=== PATIENT | female | born 1940 | race Caucasian/White ===

== ENCOUNTER 2017-04-18 10:46 | Observation (INO) | payer MEDICARE, OTHER ==
[2017-04-18] MEDS ORDERED: SODIUM CHLORIDE 0.9% 500 ML IV ONE (10:56)
[2017-04-18] MEDS ORDERED: DILTIAZEM 25MG/5ML VIAL IV ONE (10:57)
[2017-04-18] MEDS ORDERED: DILTIAZEM HCL 125 MG in 0.9 % SODIUM CHLORIDE 100ML 100 ML IV SCH (11:00)
--- NOTE | 2017-04-18 11:03 | Emergency Department Record ---
History of Present Illness - General Chief Complaint: Shortness of breath Stated Complaint: SHORT OF BREATH Time Seen by Provider: 04/18/17 10:49 Source: Patient Mode of Arrival: Wheelchair Limitations: No limitations - History of Present Illness Initial Comments: 77 yo female presents from the [facility] with fatigue for a few weeks, increasing reflux, and a resting HR of 160. The patient had not noticed her elevated heart rate. She was being seen today in the [facility] mainly for increase reflux. In July she had hiatel hernia surgery. Over the last several weeks she is noting and increase in her baseline reflux. She is taking antacids and her PPI without improvement. She has felt fatigue and short of breath. No chest pain. No edema of the legs. She denies palpitations. Her PCP is Bibiana and her Manager Gift is Tom. No CAD. MD Complaint: Shortness of breath -: Days(s) Severity: Moderate Consistency: Constant Improves With: Nothing Worsens With: Nothing Known History Of: Other Context: Other Associated Symptoms: Other (Reflux) Treatments Prior to Arrival: None - Related Data Home Oxygen Therapy: No Allergies Allergy/AdvReac Type Severity Reaction Status Date / Time prednisone Allergy Severe PALPITATION Verified 04/18/17 10:57 S acetaminophen [From Vicodin] Allergy NAUSEA Verified 04/18/17 10:57 cephalexin monohydrate Allergy NAUSEA Verified 04/18/17 10:57 [From Keflex] hydrocodone bitartrate Allergy NAUSEA Verified 04/18/17 10:57 [From Vicodin] metoprolol succinate AdvReac Mild LETHARGIC Verified 04/18/17 10:57 [From Toprol XL] nebivolol HCl [From Bystolic] AdvReac Mild INCREASED Verified 04/18/17 10:57 URINATION Travel Screening - Travel/Exposure Within Last 30 Days Have you traveled within the last 30 days?: No Review of Systems Constitutional: Reports: Weakness. Denies: Chills, Fever, Malaise Eyes: Denies: Eye discharge ENT: Denies: Congestion, Ear pain, Epistaxis, Throat pain Respiratory: Reports: Dyspnea. Denies: Cough, Hemoptysis Cardiovascular: Denies: Arrhythmia, Chest pain, Edema, Palpitations, Syncope Endocrine: Reports: Fatigue. Denies: Polydipsia, Polyuria Gastrointestinal: Denies: Abdominal pain, Constipation, Diarrhea, Hematemesis, Hematochezia, Melena, Nausea, Vomiting Genitourinary: Denies: Discharge, Dysuria, Urgency Musculoskeletal: Denies: Arthralgia, Back pain, Myalgia, Neck pain Skin: Denies: Bruising, Change in color, Rash Neurological: Denies: Headache, Numbness, Vertigo, Weakness Psychiatric: Denies: Anxiety Hematological/Lymphatic: Denies: Blood Clots, Easy bleeding, Easy bruising, Swollen glands Past Medical History - SOCIAL HISTORY Smoking Status: Never smoker Alcohol Use: None Drug Use: None - RESPIRATORY Hx Respiratory Disorders: No - CARDIOVASCULAR Hx Cardio Disorders: Yes Hx Irregular Heartbeat: Yes - NEURO Hx Neuro Disorders: No - GI Hx GI Disorders: Yes Hx Abdominal Pain: Yes (epigastric/throat) Hx Reflux: Yes Hx Hiatal Hernia: Yes Hx Ulcer: Yes Hx Wt Loss/Wt Gain: Yes - Hx Genitourinary Disorders: No - ENDOCRINE Hx Endocrine Disorders: No - MUSCULOSKELETAL Hx Musculoskeletal Disorders: Yes Hx Arthritis: Yes - PSYCH Hx Psych Problems: Yes Hx Anxiety: Yes - HEMATOLOGY/ONCOLOGY Hx Hematology/Oncology Disorders: No Family Medical History Any Significant Family History?: Yes Hx Cancer: Father, Brother/Sister *Cancer Comment: stomach & pancreatic, colon Physical Exam - General General Appearance: Alert, Oriented x3, Cooperative, No acute distress Limitations: No limitations - Head Head exam: Atraumatic, Normocephalic, Normal inspection - Eye Eye exam: Normal appearance. negative: Conjunctival injection, Periorbital swelling, Scleral icterus - ENT ENT exam: Normal exam, Mucous membranes moist Ear exam: Normal external inspection Nasal Exam: Normal inspection Mouth exam: Normal external inspection - Neck Neck exam: Normal inspection, Full ROM. negative: Tenderness - Respiratory Respiratory exam: Normal lung sounds bilaterally. negative: Respiratory distress, Rhonchi, Stridor, Wheezes - Cardiovascular Cardiovascular Exam: Normal rhythm, Normal heart sounds, Tachycardia. negative : Regular rate Peripheral Pulses: 2+: Radial (R), Radial (L) - GI/Abdominal GI/Abdominal exam: Soft. negative: Distended, Guarding, Hernia, Rebound, Rigid , Tenderness - Rectal Rectal exam: Deferred - exam: Deferred - Extremities Extremities exam: Normal inspection, Full ROM, Normal capillary refill. negative: Pedal edema, Tenderness - Back Back exam: Reports: Normal inspection, Full ROM. Denies: Muscle spasm, Rash noted, Tenderness - Neurological Neurological exam: Alert, Normal gait, Oriented X3 - Psychiatric Psychiatric exam: Normal affect, Normal mood - Skin Skin exam: Dry, Intact, Normal color, Warm Course Vital Signs 04/18/17 10:48 Temperature 98.5 F Pulse Rate 166 H Respiratory 20 Rate Blood Pressure 112/86 Pulse Ox 97 - Reevaluation(s) Reevaluation #1: EKG at 10:28 Tachycardia at 160, intervals normal, axis normal, NS ST changes. 04/18/17 11:02 No acute changes on the CBC After the 10mg IVP of Cardizem the HR improved to 90. Repeat EKG ordered 04/18/17 11:23 04/18/17 11:36 EKG#2 11:25 NSR with APC, rate is 84, intervals normal, axis normal, ST No acute changes 04/18/17 11:59 The CMP was reviewed The sodium is low at 125 The Troponin is normal The BNP is normal Current HR is 78 04/18/17 12:[address] Doan regarding admission for monitor for tachycardia, serial enzymes, ECHO, Cardiology and GI consults 04/18/17 12:22 CXR was read as no acute process Medical Decision Making - Lab Data Result diagrams: 04/18/17 11:10 04/18/17 11:10 Disposition Disposition: Admit Clinical Impression: Tachycardia, SVT (supraventricular tachycardia) Disposition: Still a Patient at [facility] Decision to Admit: Admit from ER Decision to Admit Date: 04/18/17 Decision to Admit Time: 12:18 Condition: (1) Good Forms: Patient Portal Access Time of Disposition: 12:18 Quality - Quality Measures Quality Measures: N/A - Blood Pressure Screening Does Patient Have Any of the Following: No Blood Pressure Classification: Pre-Hypertensive BP Reading Systolic Measurement: 112 Diastolic Measurement: 86 Screening for High Blood Pressure: < Pre-Hypertensive BP, F/U Documented > [ [id number]] Pre-Hypertensive Follow-up Interventions: Referral to alternative/primary care provider.
[2017-04-18 11:12] LABS: BASO % 1.2 % (0-6); EOS % 0.6 % (0-6); GRAN % 58.7 % (47-80); HEMOGLOBIN 14.6 gm/dl (11.6-16.0); LYMPH % 27.4 % (16-45); MEAN CELL VOLUME 81.9 fl (81-97); MEAN CORPUSCULAR HEMOGLOBIN 28.5 pg (27-33); MEAN CORPUSCULAR HGB CONC 34.8 g/dl (32-36); MEAN PLATELET VOLUME 9.3 fl (7.4-10.4); MONO % 12.1 % (0-9); PLATELET COUNT 345 K/uL (130-400); RED BLOOD COUNT 5.13 M/uL (3.80-5.40); RED CELL DISTRIBUTION WIDTH 14.3 % (11.5-14.5); WHITE BLOOD COUNT W/O DIFF 5.1 K/uL (4.2-12.2)
[2017-04-18 11:30] LABS: INR 0.94; PARTIAL THROMBOPLASTIN TIME 25.5 SECONDS (24.5-39.1); PROTHROMBIN TIME (PATIENT) 10.2 SECONDS (9.5-12.1)
[2017-04-18 11:43] LABS: ALB/GLOB RATIO 1.5 (1.1-1.8); ALBUMIN 4.5 g/dL (4.0-5.0); ALKALINE PHOSPHATASE 83 U/L (35-104); ALT/SGPT 14 U/L (<33); AST/SGOT 27 U/L (10.0-35.0); BLOOD UREA NITROGEN 13 mg/dL (8-23); CKMB 4.7 ng/mL (<3.77); CREATINE PHOSPHOKINASE 72 U/L (26-192); CREATININE 0.7 mg/dL (0.5-0.9); EST GLOMERULAR FILTRATION RATE > 60 mL/min; GLUCOSE,RANDOM 120 mg/dL (74-109); TOTAL PROTEIN 7.6 g/dL (6.6-8.7)
[2017-04-18 11:47] LABS: TROPONIN I < 0.30 ng/mL (0.00-0.300)
[2017-04-18] MEDS: 0.9 % SODIUM CHLORIDE 1000ML 1,000 ML IV PRN (14:35)
[2017-04-18] MEDS: PANTOPRAZOLE SODIUM 40 MG TABLET PO SCH (17:22)
[2017-04-18] MEDS ORDERED: SUCRALFATE 1 G/10 ML UD PO ONE (17:57)
[2017-04-18] MEDS ORDERED: DILTIAZEM HCL 30 MG TABLET PO SCH (18:15)
[2017-04-18] MEDS: ENOXAPARIN 60 MG/0.6 ML SYR SQ SCH (18:43)
[2017-04-18] MEDS: SUCRALFATE 1 G/10 ML UD PO SCH (22:20)
[2017-04-19] MEDS: 0.9 % SODIUM CHLORIDE 1000ML 1,000 ML IV PRN ×2 (03:09→03:15)
[2017-04-19] MEDS: DILTIAZEM HCL 30 MG TABLET PO SCH ×3 (03:13→21:23)
[2017-04-19] MEDS: ENOXAPARIN 60 MG/0.6 ML SYR SQ SCH ×2 (03:14→10:55)
[2017-04-19] MEDS: AL HYDROX/MAG HYDROX 30ML UD PO PRN ×4 (03:14→23:04)
[2017-04-19] MEDS: PANTOPRAZOLE SODIUM 40 MG TABLET PO SCH (06:58)
--- NOTE | 2017-04-19 07:37 | RADIOLOGY REPORT ---
EXAM: AP CHEST HISTORY: TACHYCARDIA, SHORTNESS OF BREATH. TECHNIQUE: AP view of the chest was obtained. Comparison: Chest x-ray 08/14/13. FINDINGS: The lungs are clear. The cardiac silhouette is not enlarged. The aorta is tortuous. The diaphragm is unremarkable. Osteopenia with severe S- shaped scoliosis of the thoracolumbar spine. Healed left rib fractures. Prominent hiatal hernia better seen prior study. IMPRESSION: 1. NO ACUTE INTRATHORACIC PROCESS. 2. PROMINENT HIATAL HERNIA BETTER SEEN ON PRIOR STUDY. 3. HEALED LEFT RIB FRACTURES. JOB NUMBER: [id number] MTDD
[2017-04-19] MEDS ORDERED: ENOXAPARIN 40 MG/0.4 ML SYR SQ SCH (10:00)
[2017-04-19] MEDS: SUCRALFATE 1 G/10 ML UD PO SCH ×4 (10:15→21:23)
[2017-04-19] MEDS: ASPIRIN 325 MG TAB ENTERIC-COATED PO SCH (10:18)
--- NOTE | 2017-04-19 10:24 | History and Physical Report ---
DATE OF ADMISSION: 04/18/2017. CHIEF COMPLAINT: Tachycardia, indigestion, burning in the epigastric area. HISTORY OF PRESENT ILLNESS: This 77-year-old female had felt she had burning and indigestion, had been eating a lot of Tums and Rolaids and went to the [facility], to the family practice to see Dr. Mccarty. She was evaluated in the family practice unit at the [facility] and moved over to the ER because an EKG was done at [facility], which showed tachycardia of about 150-160 and upon arrival to the ER, an IV was started. Cardizem 10 mg IV was given, and she converted to normal sinus rhythm with PACs and a couple of PVCs. She was feeling much better. She still had some indigestion. Will treat that with Carafate to see if that helps. She states that she had hiatal hernia surgery at [facility] July 2016, has had trouble since that time. I guess it was a difficult surgery because the hiatal hernia had been going on for a long time. She was admitted to the hospital for serial cardiac enzymes, serial EKGs, cardiology consult with Dr. Santos, and possibly down the road after her heart has been cleared, a GI consult with Dr. Sotomayor. She has seen Dr. Santos in the past on a yearly basis. I believe she was checked out also prior to hiatal hernia seurgery. MEDICAL HISTORY: She has had some irregular heartbeats in the past, palpitations. She has had a hiatal hernia, a peptic ulcer. She has had some problems with weight loss in the last 6 months. Arthritis, low back pain, anxiety. SURGICAL HISTORY: She had a hiatal hernia repair July 2016 at [facility]. She also had a bowel resection many years ago with multiple reconstructions afterwards. She had an EGD and colonoscopy, Dr. Andrews, as scheduled for maintenance. CURRENT MEDICATIONS: 1. Omeprazole 20 mg b.i.d. 2. Multiple vitamins 2 daily. 3. Cardizem LA 180 mg daily. 4. Vitamin D3 10,000 units weekly. 5. Calcium. 6. Magnesium oxide 1 daily. ALLERGIES: PREDNISONE, severe palpitations. ACETAMINOPHEN from VICODIN caused nausea. Probably the narcotic did that. KEFLEX, causing nausea. VICODIN causes nausea. METOPROLOL SUCCINATE caused lethargy. BYSTOLIC caused increased urination. SOCIAL HISTORY: Never smoked. No drugs or alcohol. FAMILY HISTORY: Mother and father, brothers, and sisters had stomach and pancreatic cancer. SYSTEMS REVIEW: HEENT: No upper respiratory infectious symptoms, cough, cold, or congestion. Cardiovascular: See chief complaint. Respiratory: No cough, cold, or congestion. Gastrointestinal: She has had hiatal hernia problems with nausea, indigestion, and burning in the epigastric area, more so in the last 2 days, but also on and off since July of 2015. Genitourinary: No dysuria, hematuria, frequency, or burning on urination. Musculoskeletal: No joint or bony abnormalities. Neurologic: No CVA, paralysis, or paresthesias. Endocrine: No diabetes or thyroid disease. Integument: No rash, ulcer changes, change in moles, yellow skin. Gynecologic: No breast or pelvic problems. PHYSICAL EXAMINATION: VITAL SIGNS: Height is 4 foot 9. Weight is 130 pounds. Blood pressure 127/85. Pulse 76. Respiratory rate 18. Pulse ox 100% on 2 L nasal cannula. HEENT: Pupils equal, round, and react to light and accommodation. Extraocular movements intact. Throat is clear. Nose clear. Tympanic membranes cohen. NECK: Supple. No jugular venous distention. No hepatojugular reflex. No carotid bruits. Thyroid smooth. LUNGS: Breath sounds equal bilaterally. HEART: Slightly irregular rate and rhythm because of PACs. ABDOMEN: Soft, nontender. No hepatosplenomegaly. No masses. No tenderness. Bowel sounds are active. No bruits. EXTREMITIES: No pitting edema. No cyanosis. No clubbing. Full range of motion. Peripheral pulses good. BREASTS, GYNECOLOGICAL, AND RECTAL: Exam deferred. NEUROLOGIC: Cranial nerves II-XII intact. No gross defect. Sensation normal. Strength normal. Deep tendon reflexes equal bilaterally. Babinski negative. Mental status: Alert and oriented x 3. IMPRESSION: 1. Tachycardia, possibly atrial fibrillation. Converted with IV Cardizem 10 mg in the ER. 2. History of hiatal hernia and surgery, July of 2016. Still having lots of indigestion, burning in the epigastric area. 3. Rule out acute coronary syndrome. Cardiac CK-MB was slightly elevated, and the troponin was normal. The EKG after the conversion showing no acute ST-T wave changes. Some PACs. A 3rd EKG was done about 6 p.m. PLAN: Serial cardiac enzymes, serial EKGs. Dr. Santos consult. Will start Lovenox 60 mg 1 mg/kg b.i.d. in case this was a paroxysmal episode of atrial fibrillation. MTDD
--- NOTE | 2017-04-19 13:00 | Medical Records Consult ---
DATE OF CONSULTATION: 04/19/2017 REASON FOR CONSULTATION: I was asked to see the patient for evaluation of recurrent SVT. HISTORY OF PRESENT ILLNESS: She is a 77-year-old white female who has known history of SVT in the past, reactive type, generally controlled with daily verapamil, currently 180 mg a day. She primarily came into the emergency room because she had been having increasing problems with esophageal reflux symptoms. She had extensive surgery earlier this year for hiatal hernia done at [facility] and [place]. She has not really recovered completely from the surgery. She continues to complain of generalized fatigue and significant reflux symptoms. Those have gotten worse to the point where she came into the emergency room yesterday and was found to be in SVT. Received adenosine and converted to sinus rhythm. The arrhythmia has not recurred. She complains of intermittent burning in her chest that comes and goes and does not really sound like angina. She has taken Tums, which generally has helped in the past but has not helped recently. She has been back to her surgeon several times and was told this is going to take a tincture of time for it to heal up. She initially put on some weight after the surgery but now has lost weight because it is difficult for her to eat. She denies any melena, hematochezia. She does have a minimally elevated CK-MB, which I think is probably a false positive. PAST MEDICAL HISTORY: Previous hypertension, arthritis. No real history of other heart disease. MEDICATIONS: Prior to admission: 1. Diltiazem 180 mg a day. 2. Prilosec apparently 40 mg b.i.d. 3. Tums p.r.n. ALLERGIES: Multiple intolerances to nebivolol, nadolol, metoprolol, hydrocodone, acetaminophen. FAMILY HISTORY: Positive for cancer. REVIEW OF SYSTEMS: A 10-point review of systems reviewed. Pertinent positives in HPI, otherwise negative. SOCIAL HISTORY: Never smoked. PHYSICAL EXAMINATION: VITAL SIGNS: Per nurses' notes and reviewed and confirmed personally. GENERAL: Nervous, thin white female sitting up in bed. Sometimes tearful. HEAD, EYES, EARS, NOSE, THROAT: Normocephalic and atraumatic. NECK: Supple. No bruits, JVD, thyromegaly. CHEST: Clear to auscultation and percussion. Surgical scars were all healed. ABDOMEN: Somewhat tender. There are no masses. GENITALIA/RECTAL: Deferred. NEUROLOGIC: Cranial nerves II-XII are intact. Sensation is normal. EXTREMITIES: Pulses are 2+/4. There is no edema. IMPRESSION: 1. Chest pain, most likely from reflux symptoms. 2. Reactive SVT, converted to sinus rhythm after adenosine. 3. Anxiety. 4. Hypertension. PLAN: Recommend increasing her diltiazem to 240 mg a day. She can undergo endoscopy today if needed. Eventually she will need a stress test of some sort. It probably can be done as an outpatient. Once again, I think the mild elevation in the CK-MB is a red tucker. I do not really think she had an ischemic episode. MARCIAD
[2017-04-19] MEDS ORDERED: 0.9 % SODIUM CHLORIDE 1000ML 1,000 ML IV ONE (15:34)
[2017-04-19] MEDS: PANTOPRAZOLE SODIUM IV 40 MG VIAL IVP SCH (15:40)
[2017-04-20] MEDS: AL HYDROX/MAG HYDROX 30ML UD PO PRN ×3 (02:06→08:54)
[2017-04-20] MEDS: PANTOPRAZOLE SODIUM IV 40 MG VIAL IVP SCH (03:33)
[2017-04-20] MEDS: ASPIRIN 325 MG TAB ENTERIC-COATED PO SCH (09:07)
[2017-04-20] MEDS: SUCRALFATE 1 G/10 ML UD PO SCH (09:07)
--- NOTE | 2017-04-20 09:20 | Discharge Note ---
VTE H&P Assessment - Risk for VTE Risk for VTE: Yes Risk Level: Low Risk Assessment Date: 04/17/17 Risk Assessment Time: 20:00 VTE Orders Placed or Will Be Placed: Yes Discharge Medications - Discharge Medications Prescriptions: Magnesium Hydroxide/Al Hydrox [Maalox] 30 ml PO Q2HR PRN #300 PRN Reason: Gi Upset Diltiazem HCl [Diltiazem 24Hr ER] 240 mg PO DAILY #30 cap.er.24h Pantoprazole Sodium [Protonix] 40 mg PO BID #60 tablet. Sucralfate [Carafate] 1 g PO QID #200 ml Home Medications: Ambulatory Orders Diltiazem HCl [Diltiazem 24Hr ER] 240 mg PO DAILY #30 cap.er.24h 04/20/17 [Last Taken Unknown] Magnesium Hydroxide/Al Hydrox [Maalox] 30 ml PO Q2HR PRN #300 04/20/17 [Last Taken Unknown] Pantoprazole Sodium [Protonix] 40 mg PO BID #60 tablet. 04/20/17 [Last Taken Unknown] Sucralfate [Carafate] 1 g PO QID #200 ml 04/20/17 [Last Taken Unknown] Discharge Note - Date Date of Discharge Note: 04/20/17 Disposition: Home, Self-Care Condition: (1) Good Additional Instructions: follow up with Dr. Doan on Saturday at [address] Doan on Saturday at noontime [phone] take carafate(sucralfate) one hour before meals and bedtime take Maalox 30 ml (two tablespoons) after meals and bedtime and between meal if necessary follow up with Dr. Booker in 1-2 weeks Take protonix 40 mg twice a day take Diltiazem(cardizem)ER 240 mg once a day Referrals: Frantz Doan D.O. [DOCTOR OF OSTEOPATH] - Forms: Patient Portal Access Activity at Discharge: Increase Activity as Tolerated Diet at Discharge: Other (full liquid diet)
[2017-04-20] MEDS ORDERED: ENOXAPARIN 40 MG/0.4 ML SYR SQ SCH (10:00)
[2017-04-20] MEDS ORDERED: DILTIAZEM HCL 120 MG ER CAPSULE PO SCH (10:00)
--- NOTE | 2017-04-20 10:34 | Medical Records Consult ---
DATE OF CONSULTATION: 04/19/2017 REQUESTING PHYSICIAN: DR. FRANTZ CARTY REASON FOR CONSULTATION: EPIGASTRIC PAIN. HISTORY OF PRESENTING ILLNESS: This is a 77-year-old female who presented to the hospital with what appears to have been SVT with rapid ventricular response and subsequently had cardioversion using medications and I am asked to see her because she is having increasing worsening of dysphagia after she has had hiatal hernia repaired by Dr. Hennessy in July of 2016. She indicated that she has been having increasing difficulty in swallowing her food and sometimes has some regurgitation and she is very fearful of aspiration. When she presented to the hospital, she had some shortness of breath with diaphoresis but no dizziness and she has a long-time history of gastroesophageal reflux disease but denies any chest pain, odynophagia, or any fever or chills. No diarrhea or any blood in the stool. REVIEW OF SYSTEMS: A 12-point systemic review was performed and is documented in her chart. PHYSICAL EXAMINATION: GENERAL/VITAL SIGNS: Reveals a pleasant, elderly female who is lying in bed with her son by the bedside with vital signs that show a blood pressure of 112/ 86 and a heart rate of 88. Respirations of 18. HEENT: She is not pale or jaundiced. Oral mucosa is moist with on ulceration. Nonicteric sclerae with no erythema. NECK: Neck is supple. No palpable lymph nodes or thyromegaly. LUNGS: Lungs are clear to auscultation bilaterally with no wheezes or rales. HEART: S1, S2. No gallop or murmur. ABDOMEN: Abdomen is soft, nontender. No palpable masses or organomegaly. Bowel sounds are present, normoactive. EXTREMITIES: No edema, cyanosis or clubbing. NEUROLOGIC: She is alert and oriented x3. No focal deficit grossly. LABORATORY DATA: She had a complete blood count done that was normal. Basic metabolic panel done that was also essentially normal. IMPRESSION: A 77-year-old female post hiatal hernia repair with intermittent dysphagia and some weight loss who presented to the hospital with SVT, currently stabilizing. RECOMMENDATIONS: My plan and recommendation include; 1. We will continue on proton pump inhibitors twice daily. 2. Add Carafate suspension. 3. I will discuss with Dr. Hennessy regarding management of this complicated patient especially with regards to possible EGD with dilatation and/or repeat surgery. I will be very happy to see her upon discharge. Thank you for allowing me to participate in the care of your patients. cc: Dr. Frantz Carty JOB NUMBER: [id number] MTDD
--- NOTE | 2017-04-22 12:50 | Discharge Summary ---
DATE: 04/20/2017 at 9:34 a.m. Observation patient. DISCHARGE DIAGNOSES: 1. Gastroesophageal reflux disease. 2. Acute gastritis. 3. Status post hiatal hernia repair. 4. Dysphagia. 5. Supraventricular tachycardia with premature atrial contractions. 6. Hypertension. ATTENDING PHYSICIAN: Frantz Doan DO REASON FOR HOSPITALIZATION: Tachycardia, indigestion, burning in the epigastric area. This 77-year-old female felt she had burning indigestion, had been eating a lot of Tums and Rolaids, went to the [facility]. Her family practice doctor is Dr. Mccarty. She is no longer here. She was then evaluated in the family practice unit and moved to the emergency department. An EKG was done in the [facility] which showed a tachycardia of 150-160. Upon arrival to the ER, an IV was started. Cardizem 10 mg IV was given. She was converted to normal sinus rhythm with PACs and a couple of PVCs. She was feeling much better. She still had some indigestion. She was also given Carafate, which seemed to help too. She states that she has had hiatal hernia at [facility] in July 2016 and had trouble ever since that surgery. She said it was a difficult surgery. She had some problems with her lung. She was admitted to our hospital this admission for serial cardiac enzymes, serial EKGs, cardiology consult with Dr. Santos, and use of consult for GI. She sees Dr. Santos on a yearly basis. SIGNIFICANT FINDINGS: The cardiac enzymes and troponin I's were negative. The CK-MB had a slight bump but did not have any clinical symptoms with it. She had normal EKG x2. Dr. Santos would like to do an outpatient Cardiolite stress test in 1-2 weeks. The chest x-ray with no acute intrathoracic process, prominent hiatal hernia better seen on a prior study, healed left rib fractures. THERAPY PROVIDED: The patient was given Carafate and Maalox. The Maalox seemed to help the most, the liquid Maalox. She was also given Protonix IV, switched over from her omeprazole. She was tolerating clear liquids well. Full liquids, was having some burping and indigestion, especially with the oatmeal. Yogurt seemed to go better. She is going to be using an organic protein drink that Robyn, the dietitian, provided for her. She is going to pick it up at an organic food store. HOSPITAL COURSE: She is improved but slightly depressed. She refused an antidepressant. She was tearful about her condition and that she seems to be losing weight and not able to swallow. Dr. Sotomayor is going to consult and said he would follow up with Dr. Hennessy who did her surgery and then possibly a controlled EGD for possible dilation to help her swallowing. Seems to be food is getting stuck, which is a big problem for her and may be the reason why she is not able to eat very well and losing weight. CONDITION ON DISCHARGE: Improved. DISCHARGE INSTRUCTIONS: Follow up with Dr. Doan on Saturday at [address] Doan on Saturday at noon at [phone] to let me know how she is doing on Saturday. Take Carafate 1 hour before meals and at bedtime. Take Maalox 30 mL 2 tablespoons after meals and at bedtime, in between meals if necessary. Follow up with Dr. Sotomayor in 1-2 weeks. Take Protonix 40 mg twice a day. We will increase her diltiazem ER to 240 mg once a day. Increase activity as tolerated. Clear liquids and full liquid diet. Increase as tolerated. MTDD
== END 2017-04-20 10:25 | disposition home or self-care (01) ==
LOC: ER 10:46 → MEDSURG 13:57 → INTOOBSV 13:57
PROVIDERS: ADMIT Emergency Medicine; ATTEND Emergency Medicine
DX: I47.1 Supraventricular tachycardia (principal); R07.89 Other chest pain; I10 Essential (primary) hypertension; F41.9 Anxiety disorder, unspecified
CPT/HCPCS: 93041; 99285 ×2; 94760 ×3; 96374; 82550; 83735; 85025; 85730; 85610; 82553 ×2; 84484 ×2; 80053; 84443; 83880; 71010; 94761; 93005 ×3; 93010 ×3; G0378 ×3; 99217; 99220; 99304; C9113; J1650

== ENCOUNTER 2017-06-02 22:44 | Observation (INO) | payer MEDICARE, OTHER ==
--- NOTE | 2017-06-02 23:10 | Emergency Department Record ---
History of Present Illness - General Chief Complaint: Chest Pain Stated Complaint: EAR ITCHY/RED,WEAKNESS,HEAVINESS IN CHEST Time Seen by Provider: 06/02/17 23:08 Source: Patient Mode of Arrival: Ambulatory Limitations: No limitations - History of Present Illness Initial Comments: 77 yo female presents to ED foe evaluation of a "lack of energy" and "pressure in the chest" and "redness to my ears". Patient denies fevers, chills, or recent illness, but reports that she may be having a reaction to her GI medications (carafate, protonix). Patient denies recent illness symptoms. Patient does report that she was recently seen in ED for SVT, was seen by Dr. Santos as an inpatient, and he recommended cardiolyte stress testing as an outpatient. Patient reports she was never told about follow-up for stress testing, therefore has not undergone any stress testing that she is aware of. MD Complaint: Chest pain Onset/Timin -: Days(s) Pain Location: Left chest Pain Radiation: None Severity: Moderate Quality: Other ("pressure") Consistency: Constant Improves With: Nothing Worsens With: Nothing Treatments Prior to Arrival: None - Related Data On Oral Contraceptives: No Previous Rx's Medication Instructions Recorded Diltiazem HCl [Diltiazem 24Hr ER] 240 mg PO DAILY #30 cap.er.24h 04/20/17 Magnesium Hydroxide/Al Hydrox 30 ml PO Q2HR PRN #300 04/20/17 [Maalox] Pantoprazole Sodium [Protonix] 40 mg PO BID #60 tablet. 04/20/17 Sucralfate [Carafate] 1 g PO QID #200 ml 04/20/17 Allergies Allergy/AdvReac Type Severity Reaction Status Date / Time prednisone Allergy Severe PALPITATION Verified 04/18/17 10:57 S cephalexin monohydrate Allergy NAUSEA Verified 04/18/17 10:57 [From Keflex] hydrocodone bitartrate Allergy NAUSEA Verified 04/18/17 10:57 [From Vicodin] metoprolol succinate AdvReac Mild LETHARGIC Verified 04/18/17 10:57 [From Toprol XL] nebivolol HCl [From Bystolic] AdvReac Mild INCREASED Verified 04/18/17 10:57 URINATION Review of Systems Constitutional: Reports: Malaise, Weakness (generalized). Denies: Chills, Fever , Night sweats Eyes: Denies: Eye discharge, Eye pain ENT: Denies: Congestion, Ear pain, Epistaxis Respiratory: Denies: Cough, Dyspnea Cardiovascular: Reports: Chest pain. Denies: Dyspnea on exertion, Palpitations Endocrine: Denies: Fatigue, Heat or cold intolerance Gastrointestinal: Denies: Abdominal pain, Nausea, Vomiting Genitourinary: Denies: Incontinence, Retention Musculoskeletal: Denies: Arthralgia, Back pain Skin: Denies: Bruising, Change in color Neurological: Denies: Abnormal gait, Confusion, Headache, Seizure Psychiatric: Denies: Anxiety Hematological/Lymphatic: Denies: Anemia, Blood Clots Past Medical History - SOCIAL HISTORY Smoking Status: Never smoker - RESPIRATORY Hx Respiratory Disorders: No - CARDIOVASCULAR Hx Cardio Disorders: Yes Hx Irregular Heartbeat: Yes - NEURO Hx Neuro Disorders: Yes Hx Headaches: Yes (allergies) - GI Hx GI Disorders: Yes Hx Abdominal Pain: Yes (epigastric/throat) Hx Reflux: Yes Hx Hiatal Hernia: Yes Hx Ulcer: Yes Hx Wt Loss/Wt Gain: Yes - Hx Genitourinary Disorders: No - ENDOCRINE Hx Endocrine Disorders: No - MUSCULOSKELETAL Hx Musculoskeletal Disorders: Yes Hx Arthritis: Yes - PSYCH Hx Psych Problems: Yes Hx Anxiety: Yes - HEMATOLOGY/ONCOLOGY Hx Hematology/Oncology Disorders: No Family Medical History Hx Cancer: Father, Brother/Sister *Cancer Comment: stomach & pancreatic, colon Physical Exam - General General Appearance: Alert, Oriented x3, Cooperative, No acute distress Limitations: No limitations - Head Head exam: Atraumatic, Normocephalic, Normal inspection Head exam detail: negative: Abrasion, Contusion, Lopez's sign, General tenderness, Hematoma, Laceration - Eye Eye exam: Normal appearance. negative: Conjunctival injection, Periorbital swelling, Periorbital tenderness, Scleral icterus - ENT Ear exam: Other (No erythema to the ears bilaterally). negative: Auricular hematoma, Auricular trauma Nasal Exam: negative: Active bleeding, Discharge, Dried blood, Foreign body Mouth exam: negative: Drooling, Laceration, Tongue elevation - Neck Neck exam: Normal inspection. negative: Meningismus, Tenderness - Respiratory Respiratory exam: Normal lung sounds bilaterally. negative: Rales, Respiratory distress, Rhonchi, Stridor - Cardiovascular Cardiovascular Exam: Regular rate, Normal rhythm, Normal heart sounds - GI/Abdominal GI/Abdominal exam: Soft. negative: Rebound, Rigid, Tenderness - Rectal Rectal exam: Deferred - exam: Deferred - Extremities Extremities exam: Normal inspection. negative: Calf tenderness, Pedal edema, Tenderness - Back Back exam: Denies: CVA tenderness (R), CVA tenderness (L) - Neurological Neurological exam: Alert, Normal gait, Oriented X3 - Psychiatric Psychiatric exam: Anxious - Skin Skin exam: Normal color. negative: Abrasion Type of lesion: negative: abrasion Course Vital Signs 06/02/17 23:06 Temperature 97.9 F Pulse Rate [ 68 Pulse Ox Probe] Respiratory 16 Rate Blood Pressure 151/99 [Left Arm] Pulse Ox 100 - Reevaluation(s) Reevaluation #1: 06/02/17 23:09 EKG: NSR with supraventricular bigeminy 78 Normal axis, normal intervals No acute ST-T wave changes Unchanged from 04/13/17 Reevaluation #2: 06/03/17 00:08 Labs reviewed, CO level 3.7, Sodium 125, labs are otherwise grossly unremarkable for an acute process. Will admit for cardiac evaluation in AM. Medical Decision Making - Lab Data Result diagrams: 06/02/17 23:45 06/02/17 23:32 Disposition Disposition: Admit Clinical Impression: Hyponatremia Chest pain Qualifiers: Chest pain type: unspecified Qualified Code(s): R07.9 - Chest pain, unspecified Disposition: Still a Patient at [facility] Decision to Admit: Admit from ER Decision to Admit Date: 06/03/17 Decision to Admit Time: 00:10 Condition: (2) Stable Forms: Patient Portal Access Time of Disposition: 00:10 Quality - Quality Measures Quality Measures: N/A - Blood Pressure Screening Does Patient Have Any of the Following: Active Dx of HTN Blood Pressure Classification: Hypertensive Reading Systolic Measurement: 135 Diastolic Measurement: 96 Screening for High Blood Pressure: Patient Exclusion, Hx of HTN [[id number]]
[2017-06-02] MEDS ORDERED: ASPIRIN 81 MG CHEWABLE TABLET PO ONE (23:32)
[2017-06-02] MEDS ORDERED: NITROGLYCERIN 0.4MG SL TABLET #25 BTL SL ONE (23:32)
[2017-06-02 23:45] LABS: BASO % 0.8 % (0-6); EOS % 1.8 % (0-6); GRAN % 48.8 % (47-80); HEMOGLOBIN 13.6 gm/dl (11.6-16.0); LYMPH % 38.6 % (16-45); MEAN CELL VOLUME 83.2 fl (81-97); MEAN CORPUSCULAR HGB CONC 34.9 g/dl (32-36); PLATELET COUNT 268 K/uL (130-400); RED BLOOD COUNT 4.69 M/uL (3.80-5.40); RED CELL DISTRIBUTION WIDTH 13.9 % (11.5-14.5); WHITE BLOOD COUNT W/O DIFF 6.1 K/uL (4.2-12.2)
[2017-06-03 00:01] LABS: BLOOD UREA NITROGEN 17 mg/dL (8-23); CREATININE 0.6 mg/dL (0.5-0.9); EST GLOMERULAR FILTRATION RATE > 60 mL/min; GLUCOSE,RANDOM 105 mg/dL (74-109); TOTAL PROTEIN 7.1 g/dL (6.6-8.7)
[2017-06-03 00:06] LABS: ALB/GLOB RATIO 1.4 (1.1-1.8); ALBUMIN 4.2 g/dL (4.0-5.0); ALKALINE PHOSPHATASE 83 U/L (35-104); ALT/SGPT 11 U/L (<33); AST/SGOT 23 U/L (10.0-35.0)
[2017-06-03] MEDS ORDERED: NITROGLYCERIN 0.4MG SL TABLET #25 BTL SL PRN (00:55)
[2017-06-03] MEDS ORDERED: 0.9 % SODIUM CHLORIDE 1000ML 1,000 ML IV PRN (00:55)
[2017-06-03] MEDS ORDERED: PANTOPRAZOLE SODIUM 40 MG TABLET PO SCH (07:00)
[2017-06-03] MEDS: AL HYDROX/MAG HYDROX 30ML UD PO PRN ×2 (07:00→09:22)
[2017-06-03] MEDS ORDERED: ASPIRIN 325 MG TAB ENTERIC-COATED PO SCH (10:00)
[2017-06-03] MEDS ORDERED: DILTIAZEM 240 MG CAP CR PO SCH (10:00)
--- NOTE | 2017-06-03 10:34 | RADIOLOGY REPORT ---
EXAM: CHEST, TWO VIEWS HISTORY: CHEST PAIN, DIFFICULTY IN BREATHING, CHEST HEAVINESS. TECHNIQUE: PA and lateral views of the chest were obtained. Comparison: AP sitting chest 04/18/17. FINDINGS: Prominent kyphoscoliosis as before. The lungs appear somewhat hyperinflated suggesting underlying COPD. Some mild left basilar streaky atelectasis or infiltrate. No pneumothorax evident. Stable heart size. IMPRESSION: 1. KYPHOSCOLIOSIS BEFORE. 2. HIATAL HERNIA ALSO WELL SEEN ON A PRIOR TWO VIEW CHEST X-RAY OF 08/14/13. 3. SOME MILD STREAKY ATELECTASIS OR INFILTRATE IN THE LEFT BASE. JOB NUMBER: [id number] MTDD
--- NOTE | 2017-06-03 14:30 | History and Physical Report ---
DATE OF ADMISSION: 06/03/2017 CHIEF COMPLAINT: Itchy and red ears and chest discomfort; heaviness is what she calls it but it sounds like it is more related to gastroesophageal reflux disease. HISTORY OF CHIEF COMPLAINT: The patient was seen in the emergency department by Dr. Sanchez, admitted to the hospital for serial cardiac enzymes. Her 2 sets of cardiac enzymes are negative at this point. She does have a significant hiatal hernia that had surgery by Dr. Hennessy in July 2016, is now going back to to see if there is anything else that can be done about her hiatal hernia. This appointment is tomorrow at 8 a.m[address] She has seen Dr. Sotomayor of GI and he did an EGD and stretched her esophagus a little bit better and she is swallowing better since that time. She has no discomfort now in her chest. She states that her ears are better at this point. She feels it might be the Carafate that caused her ears to get red and itchy. She is pretty anxious about her hiatal hernia and also about her diltiazem CD that she was taking at [employer] It was a different company. She was tolerating it well but when she was forced to go to [facility], the company changed and the pill is causing her some discomfort. She says it causes her to stay awake at night. At this point she is asymptomatic. She does have some PACs. She has had these in the past with palpitations. PAST MEDICAL HISTORY: PACs, palpitations, hiatal hernia, peptic ulcer, arthritis, low back pain, anxiety. PAST SURGICAL HISTORY: She had a hiatal hernia repair in July 2016 at [facility]. She also had a bowel resection many years ago with multiple reconstructions afterwards. She had an EGD and colonoscopy by Dr. Andrews about 3 months ago and repeat EGD by Dr. Sotomayor with dilation of the esophagus. She is being scheduled to go see a GI doctor to see if there is anything else that can be done for her hiatal hernia. MEDICATIONS: On admission: 1. Carafate 1 g 4 times a day. 2. Diltiazem CD 240 mg daily. She is having some troubles with the switch over to [facility] and the brand they are giving her is causing her to be awake at night. 3. Protonix 40 mg a day. 4. Calcium carbonate with vitamin D 1200 mg daily. 5. Vitamin D3, 3000 units daily. 6. Mag-Ox 400 mg daily. 7. Multiple vitamins once a day. ALLERGIES: PREDNISONE, CEPHALEXIN, HYDROCODONE, METOPROLOL SUCCINATE, BYSTOLIC. The Bystolic caused increased urination. Vicodin caused nausea. Metoprolol succinate caused lethargy. Keflex caused nausea. Prednisone caused palpitations. SOCIAL HISTORY: Never smoked. No drugs or alcohol. FAMILY HISTORY: Mother and father, brothers and sister had stomach and pancreatic cancer. REVIEW OF SYSTEMS: HEENT: No upper respiratory infection symptoms, cough, cold, or congestion. Cardiovascular: See Chief Complaint. She has some heaviness in her chest but not really chest pain. It is mostly indigestion and reflux. Respiratory: No cough, cold, or congestion. Gastrointestinal: She has hiatal hernia problems with nausea, indigestion, burning in the epigastric area. It was way worse back about a month ago on 04/18/2017. Genitourinary: No dysuria, hematuria, frequency, or burning on urination. Musculoskeletal: No joint or bone abnormalities. Neurological: No CVA, paralysis, or paresthesias. Endocrine: No diabetes or thyroid disease. Integument: No rash, ulcers, change in moles, or yellow skin. Gynecologic: No breast or pelvic problems. PHYSICAL EXAMINATION: VITALS: Height 5 feet 4 inches, weight 120 pounds. Temperature 98.2, pulse 77, blood pressure 130/70, respiratory rate 18, pulse ox 95% on room air. HEENT: Pupils are equal, round, and reactive to light and accommodation. Extraocular muscles are intact. Throat is clear. Nose is clear. Tympanic membranes are cohen. NECK: Supple. No jugular venous distention. No hepatojugular reflux. No carotid bruits. CARDIOVASCULAR: Regular rate and rhythm with some PACs on the monitor. No clicks, rubs, or gallops. RESPIRATORY: Clear to auscultation and percussion. ABDOMEN: Soft, nontender. No hepatosplenomegaly, no masses, no tenderness. Bowel sounds are active. No bruits. EXTREMITIES: No pitting edema. No cyanosis, no clubbing. Full range of motion. Peripheral pulses are good. BREASTS: Deferred. GYNECOLOGICAL: Exam deferred. RECTAL: Exam deferred. NEUROLOGIC: Cranial nerves II-XII intact. No gross defects. Sensation normal, strength normal. Deep tendon reflexes equal bilaterally with Babinski negative. MENTAL STATUS: Alert and oriented x3. IMPRESSION: 1. Chest pain secondary to esophagitis. 2. Hiatal hernia. 3. Cardiac enzymes negative x2. 4. Hypertension, on diltiazem 240 CD once a day; however, she got some new company from [employer] and it is causing her problems with sleeping. 5. Gastroesophageal reflux disease. 6. History of a bowel resection in 1994. 7. History of hiatal hernia repair in July 2016 at [facility] by Dr. Hennessy. 8. Osteoarthritis involving multiple joints. PLAN: Cardiology consult with Dr. Call. She is going to [facility] tomorrow to have her hiatal hernia evaluated and a second opinion on what to do for her hiatal hernia. She has seen Dr. Sotomayor, the GI doctor here, who scoped her EGD-bah about 2 weeks ago, possibly dilated the esophagus and she is swallowing better. She states that she thinks the Carafate is causing her ears to burn and itch. It seems a little atypical reaction but she is convinced it is that medication. We will stop the Carafate and continue the Protonix 40 mg once a day. MTDD
--- NOTE | 2017-06-03 14:43 | Discharge Note ---
VTE H&P Assessment - Risk for VTE Risk for VTE: Yes Risk Level: Very Low Risk Assessment Date: 06/03/17 Risk Assessment Time: 14:39 VTE Orders Placed or Will Be Placed: No VTE Reason for No Prophylaxis: Not Indicated (going home) Discharge Medications - Discharge Medications Home Medications: Ambulatory Orders Diltiazem HCl [Diltiazem 24Hr ER] 240 mg PO DAILY #30 cap.er.24h 04/20/17 [Last Taken Unknown] Magnesium Hydroxide/Al Hydrox [Maalox] 30 ml PO Q2HR PRN #300 04/20/17 [Last Taken Unknown] Pantoprazole Sodium [Protonix] 40 mg PO BID #60 tablet.dr 04/20/17 [Last Taken Unknown] Discharge Note - Date Date of Discharge Note: 06/03/17 Condition: (2) Stable Forms: Patient Portal Access
--- NOTE | 2017-06-03 14:49 | Discharge Note ---
VTE H&P Assessment - Risk for VTE Risk for VTE: Yes Risk Level: Very Low Risk Assessment Date: 06/03/17 Risk Assessment Time: 14:39 VTE Orders Placed or Will Be Placed: No VTE Reason for No Prophylaxis: Not Indicated (going home) Discharge Medications - Discharge Medications Home Medications: Ambulatory Orders Diltiazem HCl [Diltiazem 24Hr ER] 240 mg PO DAILY #30 cap.er.24h 04/20/17 [Last Taken Unknown] Magnesium Hydroxide/Al Hydrox [Maalox] 30 ml PO Q2HR PRN #300 04/20/17 [Last Taken Unknown] Pantoprazole Sodium [Protonix] 40 mg PO BID #60 tablet.dr 04/20/17 [Last Taken Unknown] Discharge Note - Date Date of Discharge Note: 06/03/17 Condition: (2) Stable Instructions: Gastroesophageal Reflux Disease (GEN) Additional Instructions: follow up with Dr. Doan in one week follow up with Katie Feng as scheduled tomorrow for hiatal hernia evaluation follow up with Dr. Santos in 3 weeks Forms: Patient Portal Access
--- NOTE | 2017-06-03 15:07 | Discharge Note ---
VTE H&P Assessment - Risk for VTE Risk for VTE: Yes Risk Level: Very Low Risk Assessment Date: 06/03/17 Risk Assessment Time: 14:39 VTE Orders Placed or Will Be Placed: No VTE Reason for No Prophylaxis: Not Indicated (going home) Discharge Medications - Discharge Medications Home Medications: Ambulatory Orders Diltiazem HCl [Diltiazem 24Hr ER] 240 mg PO DAILY #30 cap.er.24h 04/20/17 [Last Taken Unknown] Magnesium Hydroxide/Al Hydrox [Maalox] 30 ml PO Q2HR PRN #300 04/20/17 [Last Taken Unknown] Pantoprazole Sodium [Protonix] 40 mg PO BID #60 tablet.dr 04/20/17 [Last Taken Unknown] Discharge Note - Date Date of Discharge Note: 06/03/17 Disposition: Home, Self-Care Condition: (2) Stable Instructions: Gastroesophageal Reflux Disease (GEN) Additional Instructions: follow up with Dr. Doan in one week. follow with Dr. Santos in 2-3 weeks for out patient testing Forms: Patient Portal Access
== END 2017-06-03 15:39 | disposition home or self-care (01) ==
LOC: ER 22:44 → MEDSURG 06-03 01:04
PROVIDERS: ADMIT Emergency Medicine; ATTEND Emergency Medicine
DX: R07.89 Other chest pain (principal); K21.0 Gastro-esophageal reflux disease with esophagitis; I10 Essential (primary) hypertension; M19.90 Unspecified osteoarthritis, unspecified site
CPT/HCPCS: 85025; 82375; 80053; 84484; 71020; 93005 ×2; 93010; G0378; 93041; 99285

== ENCOUNTER 2017-07-06 13:19 | Inpatient (IN) | payer MEDICARE, OTHER ==
[2017-07-06] MEDS ORDERED: POLYETHYLENE GLY 17 GM PACKET PO PRN (13:48)
[2017-07-06] MEDS ORDERED: BISACODYL 10 MG SUPP RC PRN (13:48)
[2017-07-06] MEDS: AL HYDROX/MAG HYDROX 30ML UD PO PRN ×2 (14:11→20:27)
[2017-07-06] MEDS: PANTOPRAZOLE SODIUM 40 MG TABLET PO SCH (16:06)
[2017-07-06] MEDS: ACETAMINOPHEN 325 MG TAB PO PRN (16:16)
[2017-07-06] MEDS: DOCUSATE SODIUM 100 MG CAPSULE PO SCH (22:00)
[2017-07-06] MEDS: SENNOSIDES/DOCUSATE SODIUM UD CAPSULE PO SCH (22:00)
[2017-07-07] MEDS: ACETAMINOPHEN 325 MG TAB PO PRN ×3 (02:25→20:33)
[2017-07-07] MEDS: AL HYDROX/MAG HYDROX 30ML UD PO PRN ×4 (02:55→20:32)
[2017-07-07] MEDS: PANTOPRAZOLE SODIUM 40 MG TABLET PO SCH ×2 (07:50→16:21)
[2017-07-07] MEDS: DOCUSATE SODIUM 100 MG CAPSULE PO SCH ×3 (09:28→23:53)
[2017-07-07] MEDS: DILTIAZEM 240 MG PO SCH (09:28)
[2017-07-07] MEDS: LIDOCAINE 5% PATCH TOP SCH (09:28)
[2017-07-07] MEDS ORDERED: DILTIAZEM 240 MG CAP CR PO SCH (10:00)
[2017-07-07] MEDS ORDERED: PATIENT OWN MED: PO SCH (10:00)
--- NOTE | 2017-07-07 15:56 | History & Physical ---
History of Present Illness - Date Date of Service for History & Physical: 07/07/17 - History of Present Illness Admitting Diagnosis: Deconditioning d/t hiatal hernia repair History of Present Illness: patient had Hiatal hernia surgery at [facility] and here for rehab. General - Cognitive Patterns Speech: Normal Thought Process: Intact Thought Content: Normal Orientation: Oriented x3 - Communication Preferred Language?: [employer] Required: No Level of Education: High School Preferred Method of Learning: Seeing, Doing, Reading Comprehension Ability: No Impairment Able to Read: Yes Able to Write: Yes Select best description of speech pattern: Clear Speech Ability to express ideas and wants: Understood Understanding verbal content: Understands - Mood and Behavior Patterns Appearance: Well Groomed Mood: Normal Attitude: Cooperative Motor Activity: Calm Affect: Appropriate - Psychosocial Well-Being Usual Living Arrangement: Alone - Physical Functioning Activity Level: Up as tolerated Turning: Self ad kenisha ROM Ability: Moves all extremities Assistive Devices: None Ambulation Ability: Independent Bed Mobility: Independent Transfer Ability: Independent Bathing Ability: Independent Personal Hygiene: Independent Dressing Ability: Independent Eating (Feeding) Ability: Independent Toileting Ability: Independent Administer Own Medication: Needs Assist - Continence Bowel Pattern: Normal for Patient Bladder Pattern: Normal - Dental Status Unable to examine: No Broken or loosely fitting full or partial dentures: No No natural teeth or tooth fragment(s) (edentulous): No Abnormal mouth tissue (ulcers, masses, oral lesions, etc.): No Obvious or likely cavity or broken natural teeth: No Inflamed or bleeding gums or loose natural teeth: No Mouth/facial pain, discomfort or difficulty chewing: No - Nutrition Screening Poor oral intake > 1 week: Yes Unplanned weight loss in specified time frame: Yes Nutrition Support via tube feedings or parenteral nutrition: No Pressure Ulcer: No Significantly underweight define as BMI <18.5 kg/m2: No Albumin <2.5mg/dL: No Persistent nausea/vomiting/diarrhea >3 days: No Difficulty chewing/swallowing/mouth sores: No Admitting Diagnosis: No Nutrition Risk Score: High Risk Review of Systems Reviewed: No additional complaints except as noted below Constitutional: Reports: As per HPI. Denies: Chills, Fever, Malaise, Night sweats, Weakness, Weight change Eyes: Reports: As per HPI. Denies: Eye discharge, Eye pain, Photophobia, Vision change ENT: Reports: As per HPI. Denies: Congestion, Dental pain, Ear pain, Epistaxis , Hearing loss, Throat pain Respiratory: Reports: As per HPI. Denies: Cough, Dyspnea, Hemoptysis, Stridor, Wheezes Cardiovascular: Reports: As per HPI. Denies: Arrhythmia, Chest pain, Dyspnea on exertion, Edema, Murmurs, Orthopnea, Palpitations, Paroxysmal nocturnal dyspnea, Rheumatic Fever, Syncope Endocrine: Reports: As per HPI. Denies: Fatigue, Heat or cold intolerance, Polydipsia, Polyuria Gastrointestinal: Reports: As per HPI. Denies: Abdominal pain, Constipation, Diarrhea, Hematemesis, Hematochezia, Melena, Nausea, Vomiting Genitourinary: Reports: As per HPI. Denies: Abnormal menses, Discharge, Dyspareunia, Dysuria, Frequency, Hematuria, Incontinence, Retention, Urgency Musculoskeletal: Reports: As per HPI. Denies: Arthralgia, Back pain, Gout, Joint swelling, Myalgia, Neck pain Skin: Reports: As per HPI. Denies: Bruising, Change in color, Change in hair/ nails, Lesions, Pruritus, Rash Neurological: Reports: As per HPI. Denies: Abnormal gait, Confusion, Headache, Numbness, Paresthesias, Seizure, Tingling, Tremors, Vertigo, Weakness Psychiatric: Reports: As per HPI. Denies: Anxiety, Auditory hallucinations, Depression, Homicidal thoughts, Suicidal thoughts, Visual hallucinations Hematological/Lymphatic: Reports: As per HPI. Denies: Anemia, Blood Clots, Easy bleeding, Easy bruising, Swollen glands Past Medical History - SOCIAL HISTORY Smoking Status: Never smoker - SURGICAL HISTORY Past Surgical History: Bowel rsxn r/t hernia (many years ago), abdominal reconstruction multiple times afterwards, EGD/Colonoscopy,. hiatal hernia repair x2 - RESPIRATORY Hx Respiratory Disorders: No - CARDIOVASCULAR Hx Cardio Disorders: Yes Hx Abnormal EKG: Yes Hx Irregular Heartbeat: Yes - NEURO Hx Neuro Disorders: Yes Hx Headaches: Yes (allergies) - GI Hx GI Disorders: Yes Hx Abdominal Pain: Yes (epigastric/throat) Hx Reflux: Yes Hx Hiatal Hernia: Yes Hx Ulcer: Yes Hx Wt Loss/Wt Gain: Yes - Hx Genitourinary Disorders: No - ENDOCRINE Hx Endocrine Disorders: No - MUSCULOSKELETAL Hx Musculoskeletal Disorders: Yes Hx Arthritis: Yes - PSYCH Hx Psych Problems: Yes Hx Anxiety: Yes - HEMATOLOGY/ONCOLOGY Hx Hematology/Oncology Disorders: No Family Medical History Any Significant Family History?: Yes Hx Cancer: Father, Brother/Sister *Cancer Comment: stomach & pancreatic, colon H&P Meds/Allergies - Allergies Allergies: Allergies Allergy/AdvReac Type Severity Reaction Status Date / Time prednisone Allergy Severe PALPITATION Verified 04/18/17 10:57 S cephalexin monohydrate Allergy NAUSEA Verified 04/18/17 10:57 [From Keflex] hydrocodone bitartrate Allergy NAUSEA Verified 04/18/17 10:57 [From Vicodin] metoprolol succinate AdvReac Mild LETHARGIC Verified 04/18/17 10:57 [From Toprol XL] nebivolol HCl [From Bystolic] AdvReac Mild INCREASED Verified 04/18/17 10:57 URINATION - Home Medications Previous Rx's Medication Instructions Recorded Diltiazem HCl [Diltiazem 24Hr ER] 240 mg PO DAILY #30 cap.er.24h 04/20/17 Magnesium Hydroxide/Al Hydrox 30 ml PO Q2HR PRN #300 04/20/17 [Maalox] Pantoprazole Sodium [Protonix] 40 mg PO BID #60 tablet. 04/20/17 - Active Medications Active Medications: Current Medications Acetaminophen (Tylenol 325mg) 325 mg PO Q4H PRN PRN Reason: Pain - General Last Admin: 07/07/17 09:28 Dose: 325 mg Acetaminophen (Tylenol 325mg) 650 mg PO Q4H PRN PRN Reason: Pain - General Last Admin: 07/06/17 16:16 Dose: 650 mg Al Hydroxide/Mg Hydroxide (Maalox) 30 ml PO Q4H PRN PRN Reason: GI UPSET Last Admin: 07/07/17 14:42 Dose: 30 ml Bisacodyl (Dulcolax) 10 mg RC DAILY PRN PRN Reason: Constipation Docusate Sodium (Colace) 100 mg PO BID [facility] Last Admin: 07/07/17 09:30 Dose: Not Given Lidocaine (Lidoderm) 1 each TOP DAILY [facility] Last Admin: 07/07/17 09:28 Dose: Not Given Pantoprazole Sodium (Protonix) 40 mg PO BIDAC [facility] Last Admin: 07/07/17 07:50 Dose: 40 mg Patient Own Med: (Cardizem Cd 240mg) 1 each PO DAILY [facility] Last Admin: 07/07/17 09:28 Dose: 1 each Polyethylene Glycol (Miralax) 17 gm PO DAILY PRN PRN Reason: CONSTIPATION Senna/Docusate Sodium (Senna Plus) 1 each PO QHS [facility] Last Admin: 07/06/17 22:00 Dose: Not Given Physical Exam - Vital Signs Vital Signs: Vital Signs - Last 24 Hrs Temp Pulse Resp BP Pulse Ox 07/07/17 08:00 98.1 F 91 H 18 139/60 96 07/06/17 20:00 97.9 F 79 18 126/75 96 - General General Appearance: Alert, Oriented x3, Cooperative, No acute distress - Head Head exam: Normal inspection - Eye Eye exam: Normal appearance, PERRL Pupils: Normal accommodation - ENT ENT exam: Normal exam, Mucous membranes moist, Normal external ear exam, Normal orophraynx, TM's normal bilaterally Ear exam: Normal external inspection. negative: External canal tenderness Nasal Exam: Normal inspection. negative: Discharge, Sinus tenderness Mouth exam: Normal external inspection, Tongue normal Teeth exam: Normal inspection. negative: Dental caries Throat exam: Normal inspection. negative: Tonsillar erythema, Tonsillar exudate - Neck Neck exam: Normal inspection, Full ROM. negative: Tenderness - Respiratory Respiratory exam: Normal lung sounds bilaterally. negative: Respiratory distress - Cardiovascular Cardiovascular Exam: Regular rate, Normal rhythm, Normal heart sounds - GI/Abdominal GI/Abdominal exam: Soft, Normal bowel sounds, Other (incisions look good). negative: Tenderness - Rectal Rectal exam: Deferred - exam: Deferred - Extremities Extremities exam: Normal inspection, Full ROM, Normal capillary refill. negative: Tenderness - Back Back exam: Reports: Normal inspection, Full ROM. Denies: Muscle spasm, Rash noted, Tenderness - Neurological Neurological exam: Alert, Normal gait, Oriented X3, Reflexes normal - Psychiatric Psychiatric exam: Normal affect, Normal mood - Skin Skin exam: Dry, Intact, Normal color, Warm Discharge Potential - Discharge Needs Community Services Used Prior to Admission: None Patient Discharge Plan Description: Return Home Community Services Needed at Discharge: Occupational Therapy, Physical Therapy Plan - Detailed Diagnosis and Plan (1) Physical deconditioning Current Visit: Yes Status: Acute Base Code: R53.81 - OTHER MALAISE Priority: High (2) Hypertension Current Visit: Yes Status: Acute Base Code: I10 - ESSENTIAL (PRIMARY) HYPERTENSION Priority: Medium (3) GERD without esophagitis Current Visit: Yes Status: Acute Base Code: K21.9 - GASTRO-ESOPHAGEAL REFLUX DISEASE WITHOUT ESOPHAGITIS Priority: Medium - Disposition rehab in swing bed program
[2017-07-07] MEDS: SENNOSIDES/DOCUSATE SODIUM UD CAPSULE PO SCH (23:53)
[2017-07-08] MEDS: ACETAMINOPHEN 325 MG TAB PO PRN ×3 (06:17→17:17)
[2017-07-08] MEDS: PANTOPRAZOLE SODIUM 40 MG TABLET PO SCH ×2 (06:18→17:14)
[2017-07-08] MEDS ORDERED: ACETAMINOPHEN 325 MG TAB PO PRN (06:22)
--- NOTE | 2017-07-08 09:56 | Rehab Evaluation ---
Patient Information - Patient Information Diagnosis: hiatal hernia repair Ordered Treatment: PT Evaluate and Treat Status: Initial Evaluation Surgery: Yes Date of Surgery: 07/03/17 History: Detail (The patient was transferred from [facility] for rehabilitation.) Past Medical/Surgical Hx: PAST MEDICAL/SURGICAL HISTORY Past Surgical History Bowel rsxn r/t hernia (many years ago), abdominal reconstruction multiple times afterwards, EGD/Colonoscopy, hiatal hernia repair x2 PMH - Respiratory Hx Respiratory Disorders No PMH - Cardiovascular Hx Cardiovascular Disorders Yes Hx Abnormal EKG Yes Hx Irregular Heartbeat Yes PMH - Neuro Hx Neurological Disorders Yes Hx Headaches Yes: allergies PMH - GI Hx Gastrointestinal Disorders Yes Hx Abdominal Pain Yes: epigastric/throat Hx Gastroesophageal Reflux Yes Hx Hiatal Hernia Yes Hx Ulcer Yes Hx Weight Loss/Weight Gain Yes PMH - Hx Genitourinary Disorders No Hx Age of Menopause 51 PMH - Endocrine Hx Endocrine Disorders No PMH - Musculoskeletal Hx Musculoskeletal Disorders Yes Hx Arthritis Yes PMH - Psych Hx Psychiatric Problems Yes Hx Anxiety Yes PMH - Hematology/Oncology Hx Hematology/Oncology No Disorders Premorbid Status: Detail (The patient was ambulatory without device and independent with all household tasks.) Social History: Detail (The patient lives alone in a one story home with a basement with a ramp at the enterance. The patient's is a resident in [facility]. The patient's bathroom is equipped with a walk in shower with a seat, hand held shower head and no grab bars and a standard toilet with grab bars. The patient has a standard walker.) Precautions: [place], Other (No lifting over 20 #, activity as tolerated.) - Time With Patient Total Time Spent With Patient (Min): 30 Treatment Procedures: Detail (Initial Evalluation) Subjective Information - Subjective Information Per Patient (The patient has complants of fatigue and lack of sleep. No complaints of pain.) Objective Data - Mental Status Patient Orientation: Oriented x3 - Visual Perception Appears within normal limits for therapeutic activities - ROM Within normal limits (The patient's LE AROM is WNL.) - Strength/Tone Not within normal limits (The patient's LE strength is as follows: hip flexors bilaterally 3+/5, hip abductors, adductors L 4-/5, R 4/5, LAQ 4/5, hamstrings R 4/5 L 4-/5, ankle musculature 4/5.) - Bed Mobility Independent (The patient was independent with sit to supine.) - Transfers Independent (The patient was independent with sit to and from stand transfer.) - Balance Balance Sitting: Good Balance Standing: Fair (The patient's balance was not formally tested using objective testing. However the patient was able to ambulate without device occasionally hanging onto [place].) - Sensation Intact - Gait Detail (The patient ambulated without device with supervision for safety and occasionally hanging onto [place]aca a distance of 85 feet x 1. The patient's gait pattern was charecterized by decreased stride length and occasional stagger steps.) Therapy Assessment - Therapy Assessment Detail (The patient was increased LE weakness and decreased ability to complete sustained physical activity. The patient complained of LE weakness and fatigue after ambulating. Feel the patient is a good rehab candidate to improve her functional level.) Problem List - Problem List Physical Therapy Problem List: Detail (1) Decreased LE strength 2) Decreased ability to complete sustained physical activity 3) Decreased balance when ambulating) Goals - Goals Physical Therapy Goals: 1) Evaluate the patient's balance using an Objective balance scale. 2) Increase LE strength 1/3 muscle grade to improve stability of gait pattern. 3) The patient will ambulate independently community distances ( 150 feet plus) with or without device. 4) The patient will tolerate 30 to 35 minutes of physical activity with one rest period. Prognosis - Prognosis Good Plan - Plan Physical Therapy Plan: PT M-F 1 to 2 times a day for gait training, LE strengthening and balance exercises.
[2017-07-08] MEDS: DOCUSATE SODIUM 100 MG CAPSULE PO SCH ×2 (10:14→21:41)
[2017-07-08] MEDS: LIDOCAINE 5% PATCH TOP SCH (10:14)
[2017-07-08] MEDS: DILTIAZEM 240 MG PO SCH (10:15)
--- NOTE | 2017-07-08 10:27 | Rehab Evaluation ---
Patient Information - Patient Information Diagnosis: hiatal hernia repair Ordered Treatment: OT Evaluate and Treat Status: Initial Evaluation Surgery: Yes Date of Surgery: 07/03/17 History: Detail (The patient was transferred from [facility] for rehabilitation.) Past Medical/Surgical Hx: PAST MEDICAL/SURGICAL HISTORY Past Surgical History Bowel rsxn r/t hernia (many years ago), abdominal reconstruction multiple times afterwards, EGD/Colonoscopy, hiatal hernia repair x2 PMH - Respiratory Hx Respiratory Disorders No PMH - Cardiovascular Hx Cardiovascular Disorders Yes Hx Abnormal EKG Yes Hx Irregular Heartbeat Yes PMH - Neuro Hx Neurological Disorders Yes Hx Headaches Yes: allergies PMH - GI Hx Gastrointestinal Disorders Yes Hx Abdominal Pain Yes: epigastric/throat Hx Gastroesophageal Reflux Yes Hx Hiatal Hernia Yes Hx Ulcer Yes Hx Weight Loss/Weight Gain Yes PMH - Hx Genitourinary Disorders No Hx Age of Menopause 51 PMH - Endocrine Hx Endocrine Disorders No PMH - Musculoskeletal Hx Musculoskeletal Disorders Yes Hx Arthritis Yes PMH - Psych Hx Psychiatric Problems Yes Hx Anxiety Yes PMH - Hematology/Oncology Hx Hematology/Oncology No Disorders Premorbid Status: Detail (The patient was ambulatory without device and independent with all ADLs/household tasks.) Social History: Detail (The patient lives alone in a one story home with a basement with a ramp at the entrance. Laundry is on the first floor and pt states she doesn't need to go down into basement. The patient's is a resident in [facility]. The patient's bathroom is equipped with a walk in shower with a built in seat, curtain enclosure, hand held shower head and no grab bars. Pt has a standard toilet with grab bars and a walker and breakfast hostess available.) Precautions: [place], Other (No lifting over 20 #, activity as tolerated.) - Time With Patient Total Time Spent With Patient (Min): 30 (Eval completed w/ PT) Treatment Procedures: Detail (OT eval LOW) Subjective Information - Subjective Information Per Patient (Pt tearful during evaluation. Frustrated with decreased BUE strength, decreased endurance, and inability to sleep at night.) Objective Data - Mental Status Patient Orientation: Oriented x3 - Visual Perception Appears within normal limits for therapeutic activities (Pt wears glasses) - ROM Not within normal limits (Pt can complete BUE ROM shld flex to ~120 deg. LUE requires more effort to reach this range but able to complete it. She c/o post. shld pain w/ ROM. Elbow flex/ext, forearm sup/pron, and wrist flex/ext are WNL.) - Strength/Tone Not within normal limits (MMT BUE shld flex/ext, elbow ext grossly 3+/5. Elbow flex 4/5. Weakened [place] gross grasp.) - Coordination Appears within normal limits for therapeutic activities - Bed Mobility Independent - Transfers Independent (sit<>stand t/f's) - Balance Balance Sitting: Good - Sensation Intact - Gait Detail (Pt amb 67 feet w/ CGA for safety due to pt's decreased endurance and mild unsteadiness.) - ADL's/IADL's Detail (Pt able to don/doff LS button up shirt ind. Need to further assess for LB drsg and bathing.) Therapy Assessment - Therapy Assessment Detail (Pt halina. evaluation well. She presents w/ decreased endurance, decreased safety due to fatigue when ambulating household distances, weakness and decreased ROM BUE's. Pt would benefit from further skilled OT services in order to further evaluate independence and safety with ADLs, address decreased endurance, and to strengthen BUE's.) Problem List - Problem List Occupational Therapy Problem List: Detail (1. Decreased endurance to ambulate household distances safely 2. Decreased safety and independence with ADLs 3. Weakness BUE's 4. Decreased ROM BUE's) Goals - Goals Occupational Therapy Goals: 1. Pt to be ind. and safe with drsg. 2. Pt to be ind. and safe with showering. 3. Pt to be safe and ind w/ amb. household distances using AD if needed. 4. Pt to subjectively report increased strength BUE's Prognosis - Prognosis Good Plan - Plan Occupational Therapy Plan: OT to treat 2-4x a week M- to address limitations in BUE ROM, weakness, decreased endurance, and safety/ind. w/ ADLs.
[2017-07-08] MEDS: AL HYDROX/MAG HYDROX 30ML UD PO PRN ×2 (13:24→19:39)
[2017-07-08] MEDS: SENNOSIDES/DOCUSATE SODIUM UD CAPSULE PO SCH (21:41)
[2017-07-08] MEDS: DIPHENHYDRAMINE HCL 25 MG CAPSULE PO PRN (21:41)
[2017-07-09] MEDS: PANTOPRAZOLE SODIUM 40 MG TABLET PO SCH ×2 (06:41→17:01)
[2017-07-09] MEDS: ACETAMINOPHEN 325 MG TAB PO PRN ×4 (06:42→22:53)
[2017-07-09] MEDS: LIDOCAINE 5% PATCH TOP SCH (10:34)
[2017-07-09] MEDS: DOCUSATE SODIUM 100 MG CAPSULE PO SCH ×2 (10:34→22:53)
[2017-07-09] MEDS: DILTIAZEM 240 MG PO SCH (10:37)
--- NOTE | 2017-07-09 12:40 | Occupational Therapy Tx Note ---
Occupational Therapy Tx Note - Treatment Note Tolerated: Good Total Time Spent With Patient: 45 (ADL) Occupational Therapy Treatment Note: Detail (S: Pt tired from not sleeping well. O: Sit to stand and amb to bathroom Indly. Pt doffed shirt, pants and slippers Indly in sitting and standing. Pt completed showering in standing with use of grab bar Indly. Pt able to dry self in sitting and standing Indly with rest breaks due to fatigue. Pt donned shirt, pants and slippers Indly. Pt able to dry and brush hair Indly. Pt amb back to EOB Indly. A: Pt is Ind with showering, dressing and grooming/hygiene although she becomes very fatigued and requires multiple short rest breaks.) Occupational Therapy Problem List: Detail (1. Decreased endurance to ambulate household distances safely 2. Decreased safety and independence with ADLs 3. Weakness BUE's 4. Decreased ROM BUE's) Occupational Therapy Goals: 1. Pt to be ind. and safe with drsg. 2. Pt to be ind. and safe with showering. 3. Pt to be safe and ind w/ amb. household distances using AD if needed. 4. Pt to subjectively report increased strength BUE's Prognosis: Good Occupational Therapy Plan: OT to treat 2-4x a week M- to address limitations in BUE ROM, weakness, decreased endurance, and safety/ind. w/ ADLs.
[2017-07-09] MEDS: AL HYDROX/MAG HYDROX 30ML UD PO PRN ×2 (15:23→19:52)
--- NOTE | 2017-07-09 17:07 | Physical Therapy Tx Note ---
Physical Therapy Tx Note - Treatment Note Tolerated: Good Total Time Spent With Patient: 25 Physical Therapy Tx Note: Detail (The patient was in bed when PT arrived. The patient was fatigued. The patient completed the Tinetti Assessment Tool and scored 24/28, low risk for falls. The patient ambulated without device a distance of 140 feet x 1 without device. The patient completed LE strengthening exercises seated including: hip adductor squeezes, hip abduction with red band, marching and LAQ, 5 to 10 reps. The patient is ambulating with a steady gait pattern.) Physical Therapy Problem List: Detail (1) Decreased LE strength 2) Decreased ability to complete sustained physical activity 3) Decreased balance when ambulating) Physical Therapy Goals: 1) Evaluate the patient's balance using an Objective balance scale. 2) Increase LE strength 1/3 muscle grade to improve stability of gait pattern. 3) The patient will ambulate independently community distances ( 150 feet plus) with or without device. 4) The patient will tolerate 30 to 35 minutes of physical activity with one rest period. Physical Therapy Plan: PT M-F 1 to 2 times a day for gait training, LE strengthening and balance exercises.
[2017-07-09] MEDS: DIPHENHYDRAMINE HCL 25 MG CAPSULE PO PRN (22:53)
[2017-07-09] MEDS: SENNOSIDES/DOCUSATE SODIUM UD CAPSULE PO SCH (22:54)
[2017-07-10] MEDS: PANTOPRAZOLE SODIUM 40 MG TABLET PO SCH ×2 (06:21→16:43)
[2017-07-10] MEDS: ACETAMINOPHEN 325 MG TAB PO PRN ×4 (07:53→22:23)
[2017-07-10] MEDS: DOCUSATE SODIUM 100 MG CAPSULE PO SCH ×2 (09:08→22:21)
[2017-07-10] MEDS: LIDOCAINE 5% PATCH TOP SCH (09:08)
[2017-07-10] MEDS: DILTIAZEM 240 MG PO SCH (09:09)
[2017-07-10] MEDS: AL HYDROX/MAG HYDROX 30ML UD PO PRN ×3 (11:25→22:55)
--- NOTE | 2017-07-10 12:52 | Physical Therapy Tx Note ---
Physical Therapy Tx Note - Treatment Note Tolerated: Good Total Time Spent With Patient: 30 Physical Therapy Tx Note: Detail (Patient was seated on edge of bed upon DEMOLITION CRANE OPERATOR arrival. Patient states LEs sore and tired this morning. Pt transferrred sit to and from stand SBA x1. Patient ambulated 136 feet without assistive device SBA x1. Patient performed the following exercises x5-10 reps each: seated marching, LAQ, hamstring curls with red theraband, seated hip abduction with red theraband, seated adductor squeeze, seated heel raises, seated toe raises, and glut squeezses. Patient tolerated treatment well. Patient displays decreased strength and endurance with exercises. Patient reports LEs sore after treatment. Patient was left seated in chair with call light within reach. ) Physical Therapy Problem List: Detail (1) Decreased LE strength 2) Decreased ability to complete sustained physical activity 3) Decreased balance when ambulating) Physical Therapy Goals: 1) Evaluate the patient's balance using an Objective balance scale. 2) Increase LE strength 1/3 muscle grade to improve stability of gait pattern. 3) The patient will ambulate independently community distances ( 150 feet plus) with or without device. 4) The patient will tolerate 30 to 35 minutes of physical activity with one rest period. Prognosis: Good Physical Therapy Plan: PT M-F 1 to 2 times a day for gait training, LE strengthening and balance exercises.
--- NOTE | 2017-07-10 15:41 | Occupational Therapy Tx Note ---
Occupational Therapy Tx Note - Treatment Note Tolerated: Fair Total Time Spent With Patient: 30 (ther ex) Occupational Therapy Treatment Note: Detail (S: Pt visiting with a friend, reports being very tired out from earlier treatment. O: Pt donned socks and shoes Indly at EOB. Amb 10 feet to wheelchair and she was transported to rehab gym per OT. Pt completed akash hand strengthening with red theraputty-well cleaner, rolling and pinch x 5 minutes. Pt completed akash UE overhead reaching with resistive clothespins (yellow and red). Pt very fatigued and tearful at times. Pt transported back to room via wheelchair. Amb 10 feet back to EOB Indly. A : Pt very fatigued, poor UE endurance with overhead activity.) Occupational Therapy Problem List: Detail (1. Decreased endurance to ambulate household distances safely 2. Decreased safety and independence with ADLs 3. Weakness BUE's 4. Decreased ROM BUE's) Occupational Therapy Goals: 1. Pt to be ind. and safe with drsg. 2. Pt to be ind. and safe with showering. 3. Pt to be safe and ind w/ amb. household distances using AD if needed. 4. Pt to subjectively report increased strength BUE's Prognosis: Good Occupational Therapy Plan: OT to treat 2-4x a week M- to address limitations in BUE ROM, weakness, decreased endurance, and safety/ind. w/ ADLs.
[2017-07-10] MEDS: SENNOSIDES/DOCUSATE SODIUM UD CAPSULE PO SCH (22:21)
[2017-07-10] MEDS: DIPHENHYDRAMINE HCL 25 MG CAPSULE PO PRN (22:24)
[2017-07-11] MEDS: PANTOPRAZOLE SODIUM 40 MG TABLET PO SCH ×2 (06:17→16:24)
[2017-07-11] MEDS: ACETAMINOPHEN 325 MG TAB PO PRN ×4 (09:04→22:04)
[2017-07-11] MEDS: AL HYDROX/MAG HYDROX 30ML UD PO PRN ×3 (09:04→18:11)
[2017-07-11] MEDS: DILTIAZEM 240 MG PO SCH (09:05)
[2017-07-11] MEDS: DOCUSATE SODIUM 100 MG CAPSULE PO SCH ×2 (09:06→22:03)
[2017-07-11] MEDS: LIDOCAINE 5% PATCH TOP SCH (09:06)
--- NOTE | 2017-07-11 12:24 | Physical Therapy Tx Note ---
Physical Therapy Tx Note - Treatment Note Tolerated: Fair Total Time Spent With Patient: 15 Physical Therapy Tx Note: Detail (Patient was longsitting in bed upon MANAGER GALLERY arrival. Patient refused LE exercises. Patient states LEs were so painful last night she was fearful of falling. Patient states arms also sore. Patient transferred sit to and from stand SBA x1. Patient ambulated 100 feet with holding hallway railing and PTAs hand. Patient performed the following exercises x2-5 reps each seated on edge of bed no resistance: shoulder flexion, shoulder abduction, bicep curls, shoulder internal/external rotation, and PNF D1 and D2 flexion/extension diagonals. Patient complained with all exercises of UE pain. Patient refused further exercises due to sorenes. Patient was left seated on edge of bed with call light within reach.) Physical Therapy Problem List: Detail (1) Decreased LE strength 2) Decreased ability to complete sustained physical activity 3) Decreased balance when ambulating) Physical Therapy Goals: 1) Evaluate the patient's balance using an Objective balance scale. 2) Increase LE strength 1/3 muscle grade to improve stability of gait pattern. 3) The patient will ambulate independently community distances ( 150 feet plus) with or without device. 4) The patient will tolerate 30 to 35 minutes of physical activity with one rest period. Prognosis: Good Physical Therapy Plan: PT M-F 1 to 2 times a day for gait training, LE strengthening and balance exercises.
--- NOTE | 2017-07-11 15:05 | Physical Therapy Tx Note ---
Physical Therapy Tx Note - Treatment Note Tolerated: Fair Total Time Spent With Patient: 45 Physical Therapy Tx Note: Detail (Pt was sitting up in bed upon arrival. Pt states that "therapy overdid it yesterday and I am still very sore and I don't want to do anything." Pt was instructed in the expectations of PT and the need to complete as much as tolerated within abilities of pt. Pt completed ankle pumps, heel slides, and supine bilateral hip abduction (butterfly). all x 5-10 each. Pt agreed to go for a walk. Pt completed all transfers independently. Pt ambulated 145 ft. with occasionally holding onto rail in hallway with frequent rest periods. Pt returned to room, rested at edge of bed x 10 min then repeated ambulation but was able to go 100 ft. with frequent rest periods and holding onto rail occasionally. Pt returned to bed and states very fatigued but did not complain of pain or increased soreness. Pt states to be going home tomorrow. Pt to be seen tomorrow for PT and OT.) Physical Therapy Problem List: Detail (1) Decreased LE strength 2) Decreased ability to complete sustained physical activity 3) Decreased balance when ambulating) Physical Therapy Goals: 1) Evaluate the patient's balance using an Objective balance scale. 2) Increase LE strength 1/3 muscle grade to improve stability of gait pattern. 3) The patient will ambulate independently community distances ( 150 feet plus) with or without device. 4) The patient will tolerate 30 to 35 minutes of physical activity with one rest period. Prognosis: Moderate Physical Therapy Plan: PT M-F 1 to 2 times a day for gait training, LE strengthening and balance exercises.
[2017-07-11] MEDS: SENNOSIDES/DOCUSATE SODIUM UD CAPSULE PO SCH (22:03)
[2017-07-12] MEDS: PANTOPRAZOLE SODIUM 40 MG TABLET PO SCH (06:54)
[2017-07-12] MEDS: ACETAMINOPHEN 325 MG TAB PO PRN ×2 (07:00→10:19)
--- NOTE | 2017-07-12 08:55 | Discharge Summary ---
Providers Discharge Summary Date: 07/12/17 Date of admission: 07/06/17 13:21 Expected Date of Discharge: 07/12/17 Attending physician: Frantz Doan Primary care physician: Frantz Doan Physical Exam - Vital Signs Vital Signs: Vital Signs - Last 24 Hrs Temp Pulse Resp BP BP Pulse Ox 07/12/17 08:00 98.1 F 83 16 143/86 97 07/11/17 20:00 98.5 F 73 16 117/73 96 07/11/17 13:05 97.5 F L 148/91 - General General Appearance: Alert, Oriented x3, Cooperative, No acute distress - Head Head exam: Normal inspection - Eye Eye exam: Normal appearance, PERRL Pupils: Normal accommodation - ENT ENT exam: Normal exam, Mucous membranes moist, Normal external ear exam, Normal orophraynx, TM's normal bilaterally Ear exam: Normal external inspection. negative: External canal tenderness Nasal Exam: Normal inspection. negative: Discharge, Sinus tenderness Mouth exam: Normal external inspection, Tongue normal Teeth exam: Normal inspection. negative: Dental caries Throat exam: Normal inspection. negative: Tonsillar erythema, Tonsillar exudate - Neck Neck exam: Normal inspection, Full ROM. negative: Tenderness - Respiratory Respiratory exam: Normal lung sounds bilaterally. negative: Respiratory distress - Cardiovascular Cardiovascular Exam: Regular rate, Normal rhythm, Normal heart sounds - GI/Abdominal GI/Abdominal exam: Soft, Normal bowel sounds, Other (incisions look good). negative: Tenderness - Rectal Rectal exam: Deferred - exam: Deferred - Extremities Extremities exam: Normal inspection, Full ROM, Normal capillary refill. negative: Tenderness - Back Back exam: Reports: Normal inspection, Full ROM. Denies: Muscle spasm, Rash noted, Tenderness - Neurological Neurological exam: Alert, Normal gait, Oriented X3, Reflexes normal - Psychiatric Psychiatric exam: Normal affect, Normal mood - Skin Skin exam: Dry, Intact, Normal color, Warm Hospitalization - Hospitalization Admission Diagnosis: Deconditioning d/t hiatal hernia repair - Problem List (1) Physical deconditioning Current Visit: Yes Status: Acute Base Code: R53.81 - OTHER MALAISE (2) Hypertension Current Visit: Yes Status: Acute Base Code: I10 - ESSENTIAL (PRIMARY) HYPERTENSION (3) GERD without esophagitis Current Visit: Yes Status: Acute Base Code: K21.9 - GASTRO-ESOPHAGEAL REFLUX DISEASE WITHOUT ESOPHAGITIS - Disposition rehab [facility] - Hospitalization Course Disposition: Home, Self-Care Reason For Discharge/Transfer: Medical Stability Hospital Course: Patient gradually improved and she is eating and her pain is controlled with tylenol. physical therapy tires her out and she realizes it is helping her. Condition at Discharge: (1) Good Discharge Diagnosis: decondition for hiatal hernia surgery much improved. hypertension. Gerd Discharge Medications - Discharge Medications Home Medications: Ambulatory Orders Diltiazem HCl [Diltiazem 24Hr ER] 240 mg PO DAILY #30 cap.er.24h 04/20/17 [Last Taken Unknown] Magnesium Hydroxide/Al Hydrox [Maalox] 30 ml PO Q2HR PRN #300 04/20/17 [Last Taken Unknown] Pantoprazole Sodium [Protonix] 40 mg PO BID #60 tablet.dr 04/20/17 [Last Taken Unknown] Acetaminophen [Tylenol 325Mg] 650 mg PO Q4H PRN tablet 07/12/17 [Last Taken Unknown] Polyethylene Glycol 3350 [Miralax] 17 gm PO DAILY PRN packet 07/12/17 [Last Taken Unknown] Discharge Plan - Discharge Instructions Activity at Discharge: Increase Activity as Tolerated Diet at Discharge: Other (soft diet) Dressing Change: As needed Quality Measures - Quality Measures Quality Measures: Advance Directives, Documentation of Current Medications in Medical Record, Elder Maltreatment Screen and Follow-Up Plan, Screening for High Blood Pressure and F/U Documented - Current Medications Quality Measure: Measure #130: Documentation of Current Medications Documentation of Current Medications: <Current Medications Documented/Reviewed> [D8498] - Blood Pressure Screening Quality Measure: Screening for High Blood Pressure and Follow-Up Documented Does Patient Have Any of the Following: Active Dx of HTN Blood Pressure Classification: Hypertensive Reading Systolic Measurement: 148 Diastolic Measurement: 91 Screening for High Blood Pressure: Patient Exclusion, Hx of HTN [G9744] - Advance Directives Quality Measure: Measure #47: Care Plan Advance Directives Established: No Advance Directives Information Provided To Patient: Declined Advance Directives on File: No Living Will: No Power of Recycle Worker: Yes Power of Recycle Worker Name: ASHLEE SZYMANSKI (son) Advance Care Planning: <Care Plan/Decision Maker Documented; Discussed & Documented> [1263F] - Elder Abuse Suspicion Index Screening: Elder Abuse Suspicion Index Screening Rely on people for bathing, dressing, shopping, banking, etc: No Prevented from getting food, clothes, medication, etc: No Made to feel shamed or threatened by someone: No Forced to sign papers or use money against will: No Feel afraid, touched in ways not wanted or hurt physically: No Poor eye contact, withdrawn, malnourished, cuts or bruises: No Screening Result: Negative result EASI Reference Information: Barby SRIVASTAVA, Rabia Isaac, Mercy Ferguson, Ina Feng.Development and validation of a tool to assist physicians identification of elder abuse: The Elder Abuse Suspicion Index (EASI ). Journal of Elder Abuse and Neglect, 2008; 20 (3): 276-300. - Elder Maltreatment Screen Quality Measures: Elder Maltreatment Screen and Follow-Up Plan Elder Maltreatment Screen: <Negative, No Follow-Up Plan Required> [G8734]
--- NOTE | 2017-07-12 09:43 | Rehab Discharge Summary ---
Patient Information - Patient Information Diagnosis: hiatal hernia repair Ordered Treatment: OT Evaluate and Treat Surgery: Yes Date of Surgery: 07/03/17 History: Detail (The patient was transferred from [facility] for rehabilitation.) Past Medical/Surgical Hx: PAST MEDICAL/SURGICAL HISTORY Past Surgical History Bowel rsxn r/t hernia (many years ago), abdominal reconstruction multiple times afterwards, EGD/Colonoscopy, hiatal hernia repair x2 PMH - Respiratory Hx Respiratory Disorders No PMH - Cardiovascular Hx Cardiovascular Disorders Yes Hx Abnormal EKG Yes Hx Irregular Heartbeat Yes PMH - Neuro Hx Neurological Disorders Yes Hx Headaches Yes: allergies Hx Seizures No PMH - GI Hx Gastrointestinal Disorders Yes Hx Abdominal Pain Yes: epigastric/throat Hx Gastroesophageal Reflux Yes Hx Hiatal Hernia Yes Hx Ulcer Yes Hx Weight Loss/Weight Gain Yes PMH - Hx Genitourinary Disorders No Hx Age of Menopause 51 PMH - Endocrine Hx Endocrine Disorders No Hx Diabetes No PMH - Musculoskeletal Hx Musculoskeletal Disorders Yes Hx Arthritis Yes PMH - Psych Hx Psychiatric Problems Yes Hx Anxiety Yes PMH - Hematology/Oncology Hx Hematology/Oncology No Disorders Premorbid Status: Detail (The patient was ambulatory without device and independent with all household tasks.) Social History: Detail (The patient lives alone in a one story home with a basement with a ramp at the enterance. The patient's is a resident in [facility]. The patient's bathroom is equipped with a walk in shower with a seat, hand held shower head and no grab bars and a standard toilet with grab bars. The patient has a standard walker.) Precautions: [place], Other (No lifting over 20 #, activity as tolerated.) - Time With Patient Total Time Spent With Patient (Min): 15 (HEP review) Treatment Procedures: Detail Subjective Information - Subjective Information Per Patient (Pt excited about being d/c'd today and being able to return home. She will be beginning outpatient OT/PT.) Objective Data - Mental Status Patient Orientation: Oriented x3 - Visual Perception Appears within normal limits for therapeutic activities (Wears glasses) - ROM Not within normal limits (Pt's ROM is functional to complete ADLs. BUE shld flex ROM is ~130 deg. ROM at end ranges requires increased effort from pt to accomplish.) - Strength/Tone Not within normal limits (Pt cont's to have BUE weakness and is grossly 3+/5 for shld flex, ext, and elbow ext. Elbow flex cont's to be at MMT of 4/5. Continued weakness akash.) - Coordination Appears within normal limits for therapeutic activities - Bed Mobility Independent - Transfers Independent - Balance Balance Sitting: Good - Sensation Intact - ADL's/IADL's Detail (Pt is ind. w/ UB and LB drsg. Pt is ind. w/ standing showering w/ occasional use of grab bars. Pt does have increased fatigue w/ self care and requires frequent rest breaks.) Therapy Assessment - Therapy Assessment Detail (Pt is ind and safe w/ completion of self cares. She cont's to have BUE weakness and decreased endurance for ADLs requiring multiple rest breaks. Pt was given handouts and instructed on red theraputty HEP to address weakened gross grasp and yellow theraband shld ex's to address BUE weakness. Pt would benefit from continued home OT/PT therapy to address BUE weakness and decreased endurance for ADLs.) Patient Education - Patient Education Teaching Topic: Exercise/Activity Response: Verbalize Understanding Teaching Method: Discussion Teaching Recipient: Patient Barriers To Learning: None Problem List - Problem List Physical Therapy Problem List: Detail (1) Decreased LE strength 2) Decreased ability to complete sustained physical activity 3) Decreased balance when ambulating) Occupational Therapy Problem List: Detail (1. Decreased endurance to ambulate household distances safely 2. Decreased safety and independence with ADLs 3. Weakness BUE's 4. Decreased ROM BUE's) Goals - Goals Physical Therapy Goals: 1) Evaluate the patient's balance using an Objective balance scale. 2) Increase LE strength 1/3 muscle grade to improve stability of gait pattern. 3) The patient will ambulate independently community distances ( 150 feet plus) with or without device. 4) The patient will tolerate 30 to 35 minutes of physical activity with one rest period. Occupational Therapy Goals: 1. Pt to be ind. and safe with drsg (MET). 2. Pt to be ind. and safe with showering (MET). 3. Pt to be safe and ind w/ amb. household distances using AD if needed (MET). 4. Pt to subjectively report increased strength BUE's (NOT MET) Prognosis - Prognosis Good Plan - Plan Physical Therapy Plan: PT M-F 1 to 2 times a day for gait training, LE strengthening and balance exercises. Occupational Therapy Plan: Pt to be d/c'd from inpatient OT at this time and continue with home OT/PT.
[2017-07-12] MEDS: DOCUSATE SODIUM 100 MG CAPSULE PO SCH (10:15)
[2017-07-12] MEDS: LIDOCAINE 5% PATCH TOP SCH (10:16)
[2017-07-12] MEDS: AL HYDROX/MAG HYDROX 30ML UD PO PRN (10:17)
[2017-07-12] MEDS: DILTIAZEM 240 MG PO SCH (10:18)
--- NOTE | 2017-07-17 12:54 | Rehab Discharge Summary ---
Patient Information - Patient Information Diagnosis: hiatal hernia repair Ordered Treatment: PT Evaluate and Treat Surgery: Yes Date of Surgery: 07/03/17 History: Detail (The patient was transferred from [facility] for rehabilitation.) Past Medical/Surgical Hx: PAST MEDICAL/SURGICAL HISTORY Past Surgical History Bowel rsxn r/t hernia (many years ago), abdominal reconstruction multiple times afterwards, EGD/Colonoscopy, hiatal hernia repair x2 PMH - Respiratory Hx Respiratory Disorders No PMH - Cardiovascular Hx Cardiovascular Disorders Yes Hx Abnormal EKG Yes Hx Irregular Heartbeat Yes PMH - Neuro Hx Neurological Disorders Yes Hx Headaches Yes: allergies Hx Seizures No PMH - GI Hx Gastrointestinal Disorders Yes Hx Abdominal Pain Yes: epigastric/throat Hx Gastroesophageal Reflux Yes Hx Hiatal Hernia Yes Hx Ulcer Yes Hx Weight Loss/Weight Gain Yes PMH - Hx Genitourinary Disorders No Hx Age of Menopause 51 PMH - Endocrine Hx Endocrine Disorders No Hx Diabetes No PMH - Musculoskeletal Hx Musculoskeletal Disorders Yes Hx Arthritis Yes PMH - Psych Hx Psychiatric Problems Yes Hx Anxiety Yes PMH - Hematology/Oncology Hx Hematology/Oncology No Disorders Premorbid Status: Detail (The patient was ambulatory without device and independent with all household tasks.) Social History: Detail (The patient lives alone in a one story home with a basement with a ramp at the enterance. The patient's is a resident in [facility]. The patient's bathroom is equipped with a walk in shower with a seat, hand held shower head and no grab bars and a standard toilet with grab bars. The patient has a standard walker.) Precautions: [place], Other (No lifting over 20 #, activity as tolerated.) Subjective Information - Subjective Information Per Patient (The patient had frequent complaints of muscle soreness after PT sessions. The patient was anxious re: returning home.) Objective Data - Mental Status Patient Orientation: Oriented x3 - Visual Perception Appears within normal limits for therapeutic activities - ROM Within normal limits - Strength/Tone Not within normal limits (The patient's hip musculature is generally 4- to 4/5, LAQ and hamstrings 4/5 and ankle musculature 4+/5.) - Bed Mobility Independent - Transfers Independent (The patient was independent with sit to and stand and toilet transfers.) - Balance Balance Sitting: Good Balance Standing: Good (The patient's balance was 24/28 using the Tinetti Assessment Tool which is in the low risk for falling category.) - Gait Detail (The patient was independent with ambulation without device a distance of 140 feet x 1/) Therapy Assessment - Therapy Assessment Detail (The patient was independent with all mobility and improved balance. The patient continued to have decreased muscular endurance.) Patient Education - Patient Education Teaching Topic: Exercise/Activity (The patient was independent with a HEP of LE strengthening exercises.) Response: Return Demonstration Teaching Method: Handout Teaching Recipient: Patient Barriers To Learning: Age Related Problem List - Problem List Physical Therapy Problem List: Detail (1) Decreased LE strength 2) Decreased ability to complete sustained physical activity 3) Decreased balance when ambulating) Occupational Therapy Problem List: Detail (1. Decreased endurance to ambulate household distances safely 2. Decreased safety and independence with ADLs 3. Weakness BUE's 4. Decreased ROM BUE's) Goals - Goals Physical Therapy Goals: GOALS MET: 1) Evaluate the patient's balance using an Objective balance scale. 2) Increase LE strength 1/3 muscle grade to improve stability of gait pattern. GOALS PARTIALLY MET: 3) The patient will ambulate independently community distances ( 150 feet plus) with or without device. 4) The patient will tolerate 30 to 35 minutes of physical activity with one rest period. Occupational Therapy Goals: 1. Pt to be ind. and safe with drsg (MET). 2. Pt to be ind. and safe with showering (MET). 3. Pt to be safe and ind w/ amb. household distances using AD if needed (MET). 4. Pt to subjectively report increased strength BUE's (NOT MET) Plan - Plan Physical Therapy Plan: The patient was discharged to home. The patient is to receive home OT/PT. Occupational Therapy Plan: Pt to be d/c'd from inpatient OT at this time and continue with home OT/PT.
== END 2017-07-12 12:42 | disposition home or self-care (01) | DRG 948 ==
LOC: HOP 13:19 → MEDSURG 13:21 → HOP 13:22 → EDSTATUS 07-08 08:15
PROVIDERS: ADMIT Emergency Medicine; ATTEND Emergency Medicine
DX: R53.81 Other malaise (principal); I10 Essential (primary) hypertension; K21.9 Gastro-esophageal reflux disease without esophagitis; Z98.890 Other specified postprocedural states
CPT/HCPCS: 97110; 97116; 97165; 97530; 97535; 99306; 99316

== ENCOUNTER 2019-06-30 13:01 | Emergency (ER) | payer MEDICARE, OTHER ==
--- NOTE | 2019-06-30 13:23 | Emergency Department Record ---
History of Present Illness - General Chief Complaint: Palpitations Stated Complaint: IRREGULAR HEART BEAT Time Seen by Provider: 06/30/19 13:14 Source: Patient Mode of Arrival: Ambulatory Limitations: No limitations - History of Present Illness Initial Comments: The patient is here due to waking up at around 5am with the feeling of her heart beating irregularly. She had the palpitations for about 7 hours and they resolved almost 2 hours ago. She did take a full dose ASA and did take her blood pressure medicines a little early. The patient denied any CP, SOB, ITZ, or sweating with the palpitations. Presently she remains symptoms free. She has no hx of Afib per the patient. MD Complaint: Irregular heart beat, Palpitations Onset/Timin -: Hour(s) Context: Awoke with symptoms Arrythmia History: SVT Associated Symptoms: Denies other symptoms - Related Data Allergies Allergy/AdvReac Type Severity Reaction Status Date / Time prednisone Allergy Severe PALPITATION Verified 06/30/19 13:11 S cephalexin monohydrate Allergy NAUSEA Verified 06/30/19 13:11 [From Keflex] hydrocodone bitartrate Allergy NAUSEA Verified 06/30/19 13:11 [From Vicodin] metoprolol succinate AdvReac Mild LETHARGIC Verified 06/30/19 13:11 [From Toprol XL] nebivolol HCl [From Bystolic] AdvReac Mild INCREASED Verified 06/30/19 13:11 URINATION Travel Screening - Travel/Exposure Within Last 30 Days Have you traveled within the last 30 days?: No - Travel/Exposure Within Last Year Have you traveled outside the [place] in the last year?: No - Additonal Travel Details Have you been exposed to anyone with a communicable illness?: No - Travel Symptoms Symptom Screening: None Review of Systems Constitutional: Denies: Chills, Fever Eyes: Denies: Eye discharge ENT: Denies: Congestion Respiratory: Denies: Dyspnea Cardiovascular: Reports: Arrhythmia, Palpitations. Denies: Chest pain Endocrine: Denies: Fatigue Gastrointestinal: Denies: Nausea Genitourinary: Denies: Dysuria Musculoskeletal: Denies: Arthralgia Skin: Denies: Bruising Past Medical History - SOCIAL HISTORY Smoking Status: Never smoker Alcohol Use: None Drug Use: None - RESPIRATORY Hx Respiratory Disorders: No - CARDIOVASCULAR Hx Cardio Disorders: Yes Hx Abnormal EKG: Yes Hx Irregular Heartbeat: Yes - NEURO Hx Neuro Disorders: Yes Hx Seizures: No - GI Hx GI Disorders: Yes Hx Abdominal Pain: Yes (epigastric/throat) Hx Reflux: Yes Hx Hiatal Hernia: Yes Hx Ulcer: Yes Hx Wt Loss/Wt Gain: Yes - Hx Genitourinary Disorders: No - ENDOCRINE Hx Endocrine Disorders: No Hx Diabetes: No - MUSCULOSKELETAL Hx Musculoskeletal Disorders: Yes Hx Arthritis: Yes - PSYCH Hx Psych Problems: Yes Hx Anxiety: Yes - HEMATOLOGY/ONCOLOGY Hx Hematology/Oncology Disorders: No Family Medical History Any Significant Family History?: Yes Hx Cancer: Father, Brother/Sister *Cancer Comment: stomach & pancreatic, colon Physical Exam - General General Appearance: Alert, Oriented x3, Cooperative, No acute distress - Head Head exam: Atraumatic, Normocephalic - Eye Eye exam: Normal appearance, PERRL - ENT Throat exam: Normal inspection. negative: Tonsillar erythema, Tonsillar exudate - Neck Neck exam: Normal inspection, Full ROM. negative: Tenderness - Respiratory Respiratory exam: Normal lung sounds bilaterally. negative: Respiratory distress - Cardiovascular Cardiovascular Exam: Regular rate, Normal rhythm, Normal heart sounds. negative: Systolic murmur - GI/Abdominal GI/Abdominal exam: Soft, Normal bowel sounds. negative: Tenderness - Extremities Extremities exam: Normal inspection, Full ROM, Normal capillary refill. negative: Tenderness - Back Back exam: Reports: Normal inspection - Neurological Neurological exam: Alert, Normal gait, Oriented X3. negative: Abnormal gait, Altered, Motor sensory deficit - Psychiatric Psychiatric exam: negative: Anxious - Skin Skin exam: negative: Rash Course Vital Signs 06/30/19 13:13 Temperature 98 F Pulse Rate 79 Respiratory 20 Rate Blood Pressure 142/81 Pulse Ox 95 - Reevaluation(s) Reevaluation #1: The patient is doing a lot better at this time. She denies any symptoms presently and has had no palpitations or pain here. I did discuss the normal lab tests and EKG with the patient and the need for F/U. 06/30/19 14:03 Medical Decision Making - Data Complexity MDM Data: Labs Ordered and/or Reviewed, EKG Ordered and/or Reviewed - Lab Data Result diagrams: 06/30/19 13:15 06/30/19 13:15 - EKG Data -: EKG Interpreted by Me EKG: No Acute Changes, Normal EKG (NSR at 74, neg for ischemic changes.), Unchanged From Previous Disposition Disposition: Discharge Clinical Impression: Palpitations Disposition: Home, Self-Care Condition: (2) Stable Instructions: Heart Palpitations (ED) Additional Instructions: Please continue your regular medicines and please follow up in [facility] with Dr. Mckeon. Return to the ER for any worsening symptoms. Referrals: [facility] [Provider Group] Forms: Patient Portal Access Time of Disposition: 14:05 Quality - Quality Measures Quality Measures: N/A - Blood Pressure Screening View Details: Yes Does Patient Have Any of the Following: Active Dx of HTN Blood Pressure Classification: Pre-Hypertensive BP Reading Systolic Measurement: 142 Diastolic Measurement: 81 Screening for High Blood Pressure: Patient Exclusion, Hx of HTN [G9744]
[2019-06-30 13:32] LABS: ABSOLUTE NEUTROPHIL COUNT 2.97; BASO % 1.2 % (0-6); EOS % 0.6 % (0-6); GRAN % 57.7 % (47-80); HEMATOCRIT 40.3 % (35.0-47.0); HEMOGLOBIN 12.8 gm/dl (11.6-16.0); LYMPH % 29.2 % (16-45); MEAN CELL VOLUME 80.4 fl (81-97); MEAN CORPUSCULAR HEMOGLOBIN 25.5 pg (27-33); MEAN CORPUSCULAR HGB CONC 31.8 g/dl (32-36); MEAN PLATELET VOLUME 9.8 fl (7.4-10.4); MONO % 11.3 % (0-9); PLATELET COUNT 318 K/uL (130-400); RED BLOOD COUNT 5.01 M/uL (3.80-5.40); RED CELL DISTRIBUTION WIDTH 15.3 % (11.5-14.5); WHITE BLOOD COUNT W/O DIFF 5.1 K/uL (4.2-12.2)
[2019-06-30 13:41] LABS: BLOOD UREA NITROGEN 16 mg/dL (8-23); CREATININE 0.7 mg/dL (0.5-0.9); EST GLOMERULAR FILTRATION RATE > 60 mL/min
[2019-06-30 13:42] LABS: TOTAL PROTEIN 7.8 g/dL (6.6-8.7)
[2019-06-30 13:44] LABS: GLUCOSE,RANDOM 128 mg/dL (74-109)
[2019-06-30 13:46] LABS: ALT/SGPT 14 U/L (<33); AST/SGOT 25 U/L (10.0-35.0)
[2019-06-30 13:47] LABS: ALB/GLOB RATIO 1.4 (1.1-1.8); ALBUMIN 4.6 g/dL (4.0-5.0); ALKALINE PHOSPHATASE 118 U/L (35-104)
== END 2019-06-30 14:15 | disposition home or self-care (01) ==
LOC: ER 13:01
DX: R00.2 Palpitations (principal); I10 Essential (primary) hypertension
CPT/HCPCS: 80053; 84484; 85025; 93005; 93010; 99284

== ENCOUNTER 2019-08-20 17:48 | Emergency (ER) | payer MEDICARE, OTHER ==
--- NOTE | 2019-08-20 18:20 | Emergency Department Record ---
History of Present Illness - General Chief complaint: Weakness Stated complaint: WEAKNESS Time Seen by Provider: 08/20/19 18:06 Source: Patient Mode of Arrival: Wheelchair Limitations: No limitations - History of Present Illness Initial comments: 79 yo female presents to ED following a pre-syncopal sensation that occurred approximately 30 minutes prior to arrival. Patient reports following the event, she drover herself to the ED for evaluation. Patient reports that her symptoms have resolved and she feels at her baseline. Patient denies palpations, fevers, chills, cough, urinary symptoms, or recent illness. Patient denies chest or abdominal pain symptoms. Patient denies health problems other than HTN and hiatal hernia resulting in GERD. -: Minutes(s) Location: Generalized Severity: Moderate Consistency: Now resolved Improves with: None Worsens with: None Associated Symptoms: Denies other symptoms - Radha Coma Scale Eye Response: (4) Open spontaneously Motor Response: (6) Obeys commands Verbal Response: (5) Oriented Radha Total: 15 - Related Data Allergies Allergy/AdvReac Type Severity Reaction Status Date / Time prednisone Allergy Severe PALPITATION Verified 08/20/19 18:15 S cephalexin monohydrate Allergy NAUSEA Verified 08/20/19 18:15 [From Keflex] hydrocodone bitartrate Allergy NAUSEA Verified 08/20/19 18:15 [From Vicodin] metoprolol succinate AdvReac Mild LETHARGIC Verified 08/20/19 18:15 [From Toprol XL] nebivolol HCl [From Bystolic] AdvReac Mild INCREASED Verified 08/20/19 18:15 URINATION Review of Systems Constitutional: Denies: Chills, Fever, Malaise, Night sweats Eyes: Denies: Eye discharge, Eye pain ENT: Denies: Congestion, Ear pain, Epistaxis Respiratory: Denies: Cough, Dyspnea Cardiovascular: Reports: Other (Pre-syncopal episode). Denies: Chest pain, Dyspnea on exertion Endocrine: Denies: Fatigue, Heat or cold intolerance Gastrointestinal: Denies: Abdominal pain, Nausea, Vomiting Genitourinary: Denies: Incontinence, Retention Musculoskeletal: Denies: Arthralgia, Back pain, Gout, Joint swelling Skin: Denies: Bruising, Change in color Neurological: Denies: Abnormal gait, Confusion, Headache, Tingling, Tremors Psychiatric: Denies: Anxiety Hematological/Lymphatic: Denies: Anemia, Blood Clots Past Medical History - SOCIAL HISTORY Smoking Status: Never smoker Alcohol Use: None Drug Use: None - RESPIRATORY Hx Respiratory Disorders: No - CARDIOVASCULAR Hx Cardio Disorders: Yes Hx Abnormal EKG: Yes Hx Irregular Heartbeat: Yes - NEURO Hx Neuro Disorders: No - GI Hx GI Disorders: Yes Hx Abdominal Pain: Yes (epigastric/throat) Hx Reflux: Yes Hx Hiatal Hernia: Yes Hx Ulcer: Yes Hx Wt Loss/Wt Gain: Yes - Hx Genitourinary Disorders: No - ENDOCRINE Hx Endocrine Disorders: No Hx Diabetes: No - MUSCULOSKELETAL Hx Musculoskeletal Disorders: Yes Hx Arthritis: Yes - PSYCH Hx Psych Problems: Yes Hx Anxiety: Yes - HEMATOLOGY/ONCOLOGY Hx Hematology/Oncology Disorders: No Family Medical History Any Significant Family History?: Yes Hx Cancer: Father, Brother/Sister *Cancer Comment: stomach & pancreatic, colon Physical Exam - General General Appearance: Alert, Oriented x3, Cooperative, No acute distress Limitations: No limitations - Head Head exam: Atraumatic, Normocephalic, Normal inspection Head exam detail: negative: Abrasion, Contusion, Lopez's sign, General tenderness, Hematoma, Laceration - Eye Eye exam: Normal appearance. negative: Conjunctival injection, Periorbital s welling, Periorbital tenderness, Scleral icterus - ENT Ear exam: negative: Auricular hematoma, Auricular trauma Nasal Exam: negative: Active bleeding, Discharge, Dried blood, Foreign body Mouth exam: negative: Drooling, Laceration, Muffled voice, Tongue elevation - Neck Neck exam: Normal inspection. negative: Meningismus, Tenderness - Respiratory Respiratory exam: Normal lung sounds bilaterally. negative: Respiratory distress, Rhonchi, Stridor, Wheezes - Cardiovascular Cardiovascular Exam: Regular rate, Normal rhythm, Normal heart sounds - GI/Abdominal GI/Abdominal exam: Soft. negative: Distended, Rebound, Rigid, Tenderness - Rectal Rectal exam: Deferred - exam: Deferred - Extremities Extremities exam: Normal inspection. negative: Pedal edema, Tenderness - Back Back exam: Denies: CVA tenderness (R), CVA tenderness (L) - Neurological Neurological exam: Alert, Normal gait, Oriented X3 - Psychiatric Psychiatric exam: Normal affect, Normal mood - Skin Skin exam: Normal color. negative: Abrasion Type of lesion: negative: abrasion Course - Reevaluation(s) Reevaluation #1: 08/20/19 18:32 EKG: NSR 69 with PAC Normal axis, normal intervals No acute ST-T wave changes Reevaluation #2: 08/20/19 19:12 Laboratory studies were reviewed and appear grossly unremarkable for an acute process. Patient does not feel the urge to urinate at this time. Reevaluation #3: 08/20/19 19:34 Patient ambulated to and from the bathroom with steady gait. Reevaluation #4: 08/20/19 19:45 UA appears negative for infection. Patient reports that her symptoms have resolved Ambulates with steady gait, no clinical evidence for CVA or acute process on examination. Patient appears stable for discharge at this time. Medical Decision Making - Lab Data Result diagrams: 08/20/19 18:40 08/20/19 18:40 Disposition Disposition: Discharge Clinical Impression: Pre-syncope Disposition: Home, Self-Care Condition: (2) Stable Instructions: Near Syncope (ED) Additional Instructions: Return to ED if your symptoms worsen or if you have any concerns. Drink plenty of fluids, avoid strenuous activity. Follow-up with your family doctor in 3-5 days as directed. Forms: Patient Portal Access Time of Disposition: 19:46 Quality - Quality Measures Quality Measures: N/A - Blood Pressure Screening Does Patient Have Any of the Following: Active Dx of HTN Blood Pressure Classification: Pre-Hypertensive BP Reading Systolic Measurement: 149 Diastolic Measurement: 86 Screening for High Blood Pressure: Patient Exclusion, Hx of HTN [[id number]] Pre-Hypertensive Follow-up Interventions: Referral to alternative/primary care provider.
[2019-08-20 18:50] LABS: ABSOLUTE NEUTROPHIL COUNT 3.25; BASO % 0.9 % (0-6); EOS % 1.9 % (0-6); GRAN % 51.1 % (47-80); HEMATOCRIT 38.3 % (35.0-47.0); HEMOGLOBIN 12.2 gm/dl (11.6-16.0); LYMPH % 33.5 % (16-45); MEAN CELL VOLUME 80.8 fl (81-97); MEAN CORPUSCULAR HEMOGLOBIN 25.7 pg (27-33); MEAN CORPUSCULAR HGB CONC 31.9 g/dl (32-36); MEAN PLATELET VOLUME 9.5 fl (7.4-10.4); MONO % 12.6 % (0-9); PLATELET COUNT 290 K/uL (130-400); RED BLOOD COUNT 4.74 M/uL (3.80-5.40); RED CELL DISTRIBUTION WIDTH 15.1 % (11.5-14.5); WHITE BLOOD COUNT W/O DIFF 6.4 K/uL (4.2-12.2)
[2019-08-20 19:04] LABS: BLOOD UREA NITROGEN 22 mg/dL (8-23); CREATININE 0.7 mg/dL (0.5-0.9); EST GLOMERULAR FILTRATION RATE > 60 mL/min; TOTAL PROTEIN 7.5 g/dL (6.6-8.7)
[2019-08-20 19:06] LABS: GLUCOSE,RANDOM 117 mg/dL (74-109)
[2019-08-20 19:09] LABS: ALB/GLOB RATIO 1.4 (1.1-1.8); ALBUMIN 4.4 g/dL (4.0-5.0); ALKALINE PHOSPHATASE 101 U/L (35-104); ALT/SGPT 13 U/L (<33); AST/SGOT 22 U/L (10.0-35.0)
[2019-08-20 19:41] LABS: URINE APPEARANCE CLEAR; URINE BILIRUBIN NEGATIVE (NEGATIVE); URINE BLOOD NEGATIVE (NEGATIVE); URINE COLOR YELLOW; URINE GLUCOSE (UA) NEGATIVE (NEGATIVE); URINE KETONE NEGATIVE (NEGATIVE); URINE LEUKOCYTE ESTERASE NEGATIVE (NEGATIVE); URINE NITRITE NEGATIVE (NEGATIVE); URINE PROTEIN NEGATIVE (NEGATIVE); URINE UROBILINOGEN 0.2 E.U./dL (0.20 - 1.00)
== END 2019-08-20 20:04 | disposition home or self-care (01) ==
LOC: ER 17:48
DX: R55 Syncope and collapse (principal); I10 Essential (primary) hypertension
CPT/HCPCS: 80053; 81003; 85025; 93005; 93010; 99284